=== PATIENT | male | born 1950 | race Caucasian/White ===

== ENCOUNTER 2018-04-05 01:02 | Inpatient (IN) | payer OTHER, MEDICARE ==
[~2018-04-05] VITALS: Ht 170.2 cm; Wt 60.3 kg
[2018-04-05 01:13] LABS: PCO2 Arterial 52.4 mmHg (35-45); PO2 Arterial 83.8 mmHg (80-100); pH Blood Arterial 7.21 (7.35-7.45)
[2018-04-05 01:19] LABS: BASOPHILS ABSOLUTE AUTO 0.02 K/mm3 (0.00-0.23); BASOPHILS PERCENT AUTO 0 % (0-2); EOSINOPHILS ABSOLUTE AUTO 0.01 K/mm3 (0.00-0.68); EOSINOPHILS PERCENT AUTO 0 % (0-6); Hemoglobin 18.3 g/dL (13.5-17.5); IMMATURE GRAN ABSOLUTE AUTO 0.04 K/mm3 (0.00-0.10); IMMATURE GRAN PERCENT AUTO 0 % (0-1); LYMPHOCYTES ABSOLUTE AUTO 0.56 K/mm3 (0.84-5.20); LYMPHOCYTES PERCENT AUTO 4 % (21-46); MONOCYTES ABSOLUTE AUTO 1.32 K/mm3 (0.16-1.47); MONOCYTES PERCENT AUTO 10 % (4-13); Mean Corpuscular HGB 29.3 pg (26.0-34.0); Mean Corpuscular HGB Conc 32.1 g/dL (31.5-36.5); Mean Corpuscular Volume 91 fL (80-100); Mean Platelet Volume 9.2 fL (9.1-12.4); NEUTROPHILS PERCENT AUTO 86 % (41-73); Platelet Count 350 K/mm3 (150-400); RDW Coefficient Variation 13.2 % (11.7-14.2); RDW Standard Deviation 45.1 fL (35.1-46.3); Red Blood Cell Count 6.25 M/mm3 (4.30-5.90); White Blood Cell Count 13.45 K/mm3 (4.00-11.30)
[2018-04-05 01:43] LABS: Albumin, Blood 4.2 g/dL (3.4-5.0); Albumin/Globulin Ratio 0.8 (0.8-1.8); Bilirubin, Total 0.8 mg/dL (0.1-1.0); Calcium, Blood 9.7 mg/dL (8.5-10.1); Creatinine, Blood 1.45 mg/dL (0.60-1.20); Globulin, Blood 5.3 g/dL (2.2-4.0); Potassium, Blood 4.2 mmol/L (3.5-5.5); Total Protein, Blood 9.5 g/dL (6.4-8.2)
[2018-04-05 01:48] LABS: Troponin I 2.31 ng/mL (0.000-0.040)
[2018-04-05 03:38] LABS: Prothrombin Time Results 10.6 Sec (9.7-11.5)
[2018-04-05 03:40] LABS: Influenza A Negative (NEGATIVE); Influenza B Negative (NEGATIVE)
[2018-04-05 06:46] LABS: Source, Urine Catheter
[2018-04-05 06:52] LABS: Appearance, Urine Turbid (Clear); Bilirubin, Urine Neg (Neg); Blood, Urine 3+ (Neg); Color, Urine Yellow (P-Yellow); Glucose Qualitative, Urine 1+ (Neg); Ketones, Urine 2+ (Neg); Leukocyte Esterase, Urine Neg (Neg); Nitrite, Urine Neg (Neg); Protein, Urine 4+ (Neg); Specific Gravity, Urine 1.025 (1.003-1.022); Urobilinogen, Urine 1+ (Normal)
[2018-04-05 07:11] LABS: Adenovirus Not Detected (NOT DETECT); Bordetella pertussis Not Detected (NOT DETECT); Chlamydophila pneumoniae Not Detected (NOT DETECT); Coronavirus 229E Not Detected (NOT DETECT); Coronavirus HKU1 Not Detected (NOT DETECT); Coronavirus NL63 Not Detected (NOT DETECT); Coronavirus OC43 Not Detected (NOT DETECT); Human Metapneumovirus Not Detected (NOT DETECT); Human Rhinovirus/Enterovirus Not Detected (NOT DETECT); Influenza A Not Detected (NOT DETECT); Influenza A/2009-H1 Not Detected (NOT DETECT); Influenza A/H1 Not Detected (NOT DETECT); Influenza A/H3 Not Detected (NOT DETECT); Influenza B Not Detected (NOT DETECT); Mycoplasma pneumoniae Not Detected (NOT DETECT); Parainfluenza Virus 1 Not Detected (NOT DETECT); Parainfluenza Virus 2 Not Detected (NOT DETECT); Parainfluenza Virus 3 Not Detected (NOT DETECT); Parainfluenza Virus 4 Not Detected (NOT DETECT); Respiratory Syncytial Virus Not Detected (NOT DETECT)
[2018-04-05 07:21] LABS: Amorphous Heavy (0-Heavy); Squamous Epithelial Cells Rare /hpf (Few)
--- NOTE | 2018-04-05 07:21 | NUR ---
SUMMARY PT ARRIVED TO ICU APPROX 0325. BIPAP IN PLACE, PT DROWSY AND DIFFICULT TO AROUSE. PT IS ORIENTED, BUT SLOW TO RESPOND. THROUGHOUT MORNING PT HAS BECOME INCREASINGLY EASIER TO AROUSE. PT HYPOTENSIVE, DR. LAYTON AWARE. PT RESPONSIVE TO INCREASED FLUIDS. HR CONTINUES TO BY TACHYCARDIC BUT IMPROVING FROM 120'S-110'S. PT AFEBRILE. 02 SATURATION 90'S, RR 20'S-30'S. PT HAS POOR CIRCULATION AND INITIALLY HAD DIFFICULTY OBTAINING OXYGEN SATURATION. CARDIOLOGY AND COMPUTER TESTER CONSULTS IN PLACE FOR MORNING. HEPARIN GTT INFUSING. MARTINEZ PLACED PER DR. LAYTON ORDER PT UNABLE TO URINATE, REQUIRES STRICT I/O, AND A URINE SPECIMEN IS PENDING. REPORT TO NICK DAY SHIFT RN.
[2018-04-05 07:44] LABS: Granular Casts Rare /lpf (0)
[2018-04-05 07:47] LABS: Bacteria Few /hpf
--- NOTE | 2018-04-05 08:19 | NUR ---
CARE ASSUMED CARE AND REPORT ASSUMED FROM CARLY ROD. PT SLEEPING BUT EASILY AROUSABLE. BIPAP REMOVED AT START OF ASSESSMENT AND 3L NC APPLIED. TOLERATING 3L WITH SPO2 98% AND NO SIGNS OF RESP DISTRESS. PT DOES HAVE SHALLOW BREATHING AND BARREL CHEST. VERY HARD OF HEARING; DOES HAVE HEARING AID IN R EAR. DENIES PAIN, DENIES NAUSEA AND VOMITING AT THIS TIME. HEPARIN GTT INFUSING AT 13 UNITS/HR PER ORDER. NS INFUSING AT 100 ML/HR PER ORDER. MD GREEN BEDSIDE TO EXAMINE PT. PT OK TO HAVE BREAKFAST. PT AWARE OF SPUTUM SAMPLE. WILL CONTACT [facility] TO OBTAIN MED LIST AND RECORDS. WILL CONTINUE TO MONITOR.
[2018-04-05 10:35] LABS: Hemoglobin 14.5 g/dL (13.5-17.5); Mean Corpuscular HGB 29.1 pg (26.0-34.0); Mean Corpuscular HGB Conc 32.2 g/dL (31.5-36.5); Mean Corpuscular Volume 90 fL (80-100); Mean Platelet Volume 9.2 fL (9.1-12.4); Platelet Count 219 K/mm3 (150-400); RDW Coefficient Variation 13.3 % (11.7-14.2); RDW Standard Deviation 44.1 fL (35.1-46.3); Red Blood Cell Count 4.99 M/mm3 (4.30-5.90); White Blood Cell Count 10.57 K/mm3 (4.00-11.30)
--- NOTE | 2018-04-05 10:47 | NUR ---
ECHOCARDIOGRAM COMPLETE
[2018-04-05 11:09] LABS: Troponin I 3.21 ng/mL (0.000-0.040)
--- NOTE | 2018-04-05 11:31 | NUR ---
REASSESSMENT SPO2 98% ON RA. PT STATES O2 DOES NOT HELP HIM AND FEELS NO SHORTNESS OF BREATH. DENIES CHEST PAIN. EVALUATED BY MD MEYER AT BEDSIDE. VERBAL ORDER TO GIVE PLAVIX, ASA, AND CONTINUE HEPARIN GTT. HEPARIN GTT INCREASED TO 15 U/HR PER PHARMACY. NS INFUSING AT 100 ML/HR PER ORDER. VSS. SIT, HR 100-110. BP STABLE. LUNG SOUNDS REMAIN DIMINISHED THROUGHOUT ALL CULLEN. UPDATED AT BEDSIDE. TEMP DECREASING BY REMOVING BLANKETS AND DECREASING TEMP IN ROOM. WILL CONTINUE TO MONITOR.
[2018-04-05 11:33] LABS: Creatine Kinase MB 41.2 ng/mL (0.0-3.6); Creatine Kinase MB Index 2.9 (0.0-4.0)
[2018-04-05] MEDS ORDERED: ALBU90OI INH (11:35)
[2018-04-05] MEDS ORDERED: ALBU2.5V5 (11:35)
[2018-04-05] MEDS ORDERED: BUDE6HFA INH (11:36)
[2018-04-05] MEDS ORDERED: HYDR1TAB94 PO (11:37)
[2018-04-05] MEDS ORDERED: LISI20 PO (11:38)
[2018-04-05] MEDS ORDERED: ONDA4 PO (11:39)
[2018-04-05] MEDS ORDERED: [UNRECOGNIZED DRUG - OTHER] IM (11:39)
[2018-04-05] MEDS ORDERED: Lopressor 25 mg25 MG PO (11:39)
[2018-04-05] MEDS ORDERED: NAPR500ERA PO (11:40)
[2018-04-05 12:33] LABS: Albumin, Blood 2.6 g/dL (3.4-5.0); Albumin/Globulin Ratio 0.7 (0.8-1.8); Bilirubin, Total 0.4 mg/dL (0.1-1.0); Bun/Creatinine Ratio 25.4 (12.0-20.0); Calcium, Blood 8.2 mg/dL (8.5-10.1); Creatinine, Blood 1.38 mg/dL (0.60-1.20); Globulin, Blood 3.8 g/dL (2.2-4.0); Potassium, Blood 4.3 mmol/L (3.5-5.5); Total Protein, Blood 6.4 g/dL (6.4-8.2)
--- NOTE | 2018-04-05 15:56 | NUR ---
REASSESSMENT AR REMAINS STABLE ON RA WITH SPO2 97%. NO SIGNS OF DISTRESS. PT CALM AND COOPERATIVE. [place], HR 100-120 AND BP STABLE. TEMP 99.2. HEPARIN GTT INFUSING AT 5 U/HR AND NS INFUSING AT 100 ML/HR PER ORDER. WILL CONTINUE TO MONITOR.
--- NOTE | 2018-04-05 18:10 | NUR ---
SHIFT SUMMARY PT HAS BEEN OFF BIPAP SINCE 0800 THIS AM. NO SIGNS OF RESP DISTRESS. SPO2 98% ON RA. PT HAS DIMINSHED LUNG SOUNDS THROUGHOUT. HEPARIN GTT REMAINS INFUSING; ADJUSTED PER PHARMACY. NS MIV REMAINS INFUSING AT 100 ML/HR PER ORDER. DENIED PAIN ENTIRE SHIFT.EVALUATED BY CARDIO AND PULOMONOLOGY; SEE NOTES. BP STABLE ENTIRE SHIFT. WILL GIVE BEDSIDE, HANDOFF REPORT TO ANDREA RN.
[2018-04-05 19:06] LABS: Troponin I 3.34 ng/mL (0.000-0.040)
[2018-04-05 19:24] LABS: Creatine Kinase MB 37.7 ng/mL (0.0-3.6); Creatine Kinase MB Index 2.3 (0.0-4.0)
[2018-04-06 04:05] LABS: BASOPHILS ABSOLUTE AUTO 0.02 K/mm3 (0.00-0.23); BASOPHILS PERCENT AUTO 0 % (0-2); EOSINOPHILS PERCENT AUTO 0 % (0-6); Hematocrit 38.3 % (37.0-53.0); Hemoglobin 12.8 g/dL (13.5-17.5); IMMATURE GRAN ABSOLUTE AUTO 0.05 K/mm3 (0.00-0.10); IMMATURE GRAN PERCENT AUTO 0 % (0-1); LYMPHOCYTES ABSOLUTE AUTO 0.42 K/mm3 (0.84-5.20); LYMPHOCYTES PERCENT AUTO 3 % (21-46); MONOCYTES ABSOLUTE AUTO 1.14 K/mm3 (0.16-1.47); MONOCYTES PERCENT AUTO 9 % (4-13); Mean Corpuscular HGB 29.4 pg (26.0-34.0); Mean Corpuscular HGB Conc 33.4 g/dL (31.5-36.5); Mean Corpuscular Volume 88 fL (80-100); Mean Platelet Volume 9.1 fL (9.1-12.4); NEUTROPHILS ABSOLUTE AUTO 11.13 K/mm3 (1.96-9.15); NEUTROPHILS PERCENT AUTO 87 % (41-73); Platelet Count 226 K/mm3 (150-400); RDW Coefficient Variation 13.4 % (11.7-14.2); RDW Standard Deviation 43.5 fL (35.1-46.3); Red Blood Cell Count 4.36 M/mm3 (4.30-5.90); White Blood Cell Count 12.76 K/mm3 (4.00-11.30)
[2018-04-06 04:21] LABS: BAND PERCENT MAN 6 % (0-8); BASOPHILS PERCENT MAN 0 % (0-2); EOSINOPHILS PERCENT MAN 0 % (0-6); LYMPHOCYTES ABSOLUTE MAN 0.63 K/mm3 (0.84-5.20); LYMPHOCYTES PERCENT MAN 5 % (21-46); MONOCYTES ABSOLUTE MAN 1.02 K/mm3 (0.16-1.47); MONOCYTES PERCENT MAN 8 % (4-13); SEG NEUTROPHILS PERCENT MAN 81 % (41-73); TOTAL CELLS COUNTED 100
[2018-04-06 04:27] LABS: Alanine Aminotransfer (ALT/SGP 29 U/L (12-78); Albumin, Blood 2.5 g/dL (3.4-5.0); Albumin/Globulin Ratio 0.7 (0.8-1.8); Alk Phos 53 U/L (50-136); Anion Gap 9 mmol/L (6-16); Aspartate Aminotrans (AST/SGOT 73 U/L (12-37); Bilirubin, Total 0.4 mg/dL (0.1-1.0); Blood Urea Nitrogen 30 mg/dL (8-24); Bun/Creatinine Ratio 23.8 (12.0-20.0); CO2, Blood 23 mmol/L (21-32); Calcium, Blood 8.6 mg/dL (8.5-10.1); Chloride, Blood 110 mmol/L (98-108); Creatinine, Blood 1.26 mg/dL (0.60-1.20); Globulin, Blood 3.7 g/dL (2.2-4.0); Glomerular Filtration Rate >60 (60-); Glucose, Blood 142 mg/dL (70-99); Phosphorus, Blood 2.7 mg/dL (2.5-4.9); Potassium, Blood 3.8 mmol/L (3.5-5.5); Sodium, Blood 142 mmol/L (136-145); Total Protein, Blood 6.2 g/dL (6.4-8.2)
[2018-04-06 05:04] LABS: PCO2 Arterial 31.6 mmHg (35-45); PO2 Arterial 76.5 mmHg (80-100); pH Blood Arterial 7.47 (7.35-7.45)
--- NOTE | 2018-04-06 06:50 | NUR ---
SHIFT SUMMARY A/O X3, ABLE TO MAKE NEEDS KNOWN. COOPERATIVE WITH CARE. ANSWERS QUESTIONS APPROPRIATELY. NO C/O PAIN/DISCOMFORT. REMAINS ON RA AND 98% WITH EQUAL RISE AND FALL. APPEARED TO SLEEP MUCH OF SHIFT. REMAINS ON HEPARIN DRIP; CURRENT RATE 18 U/KG/HR. NO ACUTE CHANGES NOTED OVERNIGHT. BED IN LOWEST POSITION. CALL LIGHT IN REACH. WCTM. REPOR TO ONCOMING RN.
--- NOTE | 2018-04-06 16:27 | NUR ---
Initial Visit: Palliative Care Consult for Advanced Care Planning. Pt is A&O and reports a tolerable pain level of 2/10 due to reflux. He reports significant anxiety and states he does not like to take medication for his anxiety. He uses distraction and at home his THC edibles manages his symptoms. His Sheri is present during visit. Engaged in therapeutic conversations about goals of care. Pt lives at home with his . His is his primary caregiver and does all the cooking and cleaning. Pt at baseline is independent but can not tolerate much activity. Pt reports experiencing depression on a routine bases and is managed with his THC therapy. Listened as Sheri expresses concerns about Pt's condition and experiencing caregiver stress. Discussed the option of having a caregiver in the home for a couple hours a day to give Sheri respite and she expresses interest in this idea. Discussed Pt's goals as his disease process takes it coarse. Pt reports the he and his have not considered residential goals. Encouraged Pt and his to consider residential goals and what their wishes are as this terminal illness takes it's coarse. Encouraged Pt and Sheri to have routine discussion with his PCP and Hand Rigger about the progression of his COPD to stay on top of any goals they may decide. Pt wishes to remain a full code at this time and wants to return to his base line. Discussed the high risk re-admission COPD program and Pt expresses interest. No other concerns reported at this time. Plan is to remain available for therapeutic visits. Place social service consult to help Pt and family obtain caregivers in the home. Spoke with Kushal (COPD) educsylvia and discussed Pt's interest in the high risk program.
--- NOTE | 2018-04-06 17:36 | NUR ---
END OF SHIFT SUMMARY; PT REMAINS ON BEDREST. VITAL SIGNS WNL. HEPARIN DRIP AT 19U/KG/HR AT 19ML. HE IS AO X 4. PASTORAL CARE VISITS WITH PATIENT THIS AFTERNOON. SPOUSE COMES LATER AND PT APPEARS AGITATED. ASKING ABOUT GOLD CHAIN THAT HE THINKS WAS AROUND HIS NECK ON ADMIT TO HOSPITAL. THIS RN LOOKS IN CHART AND NOTHING WAS TURNED INTO SECURITY. WILL CHECK WITH CHARGE AND MENTION TO ONCOMNING STAFF TO SEE IF ANYONE NOTICED THIS CHAIN. MARTINEZ CATH IN PLACE TO DOWN DRAIN. LUNGS ARE COARSE ON LEFT. PT HAS SMALL NONPRODUCTIVE COUGH NOTED. WILL CONTINUE TO MONITOR THIS PATIENT UNTIL REPORT AND HAND OFF TO NOC SHIFT RN.
--- NOTE | 2018-04-06 17:38 | NUR ---
This is an articulate, lakshmi man who appeared to enjoy conversation and companionship. He understands his illness is progressive and admits it is getting harder and harder to manage. Eri tells me even eating has become a problem. It is difficult for him to eat and breathe. He admits he has been surviving on a primarily liquid diet. He will benefit from pet adoption counselor/education of his options going forward. He tells me he is not fearful of , but of suffering. Eri wants to remain a full code because his needs him. I provided theraputic listening and gentle pet adoption counselor to good effect. I will remain available.
--- NOTE | 2018-04-07 01:09 | NUR ---
CHANGE: APPROX 0030 PATIENT BEGAN TO C/O DIFFICULTY BREATHING, HR INCREASING, CRACKLES AUSCULTATED IN BILATERAL LOWER LUNGS, VERY LABORED BREATHING WITH RETRACTIONS. MD EPSTEIN NOTIFIED, ORDERS RECIEVED. PATIENT CONTINUED TO WORSEN, MD CHANG IN WITH PATIENT, NS STOPPED, AMIODERONE ORDERED, EKG AQUIRED, CARDIOLOGY TO BE NOTIFIED. RT PLACED BIPAP, HR NOT IMPROVING
--- NOTE | 2018-04-07 01:52 | NUR ---
CARDIOLOGY NOTIFIED OF PATIENTS CHANGES, EKG OUTCOME AND ACTIONS TAKEN, MD STEVENS GAVE ORDERS OVER THE PHONE. AMIODERONE DRIP ORDERED AND PATIENT MADE NPO FOR POSSIBLE CATHETERIZATION IN THE AM. VS FREQUENCY INCREASED, PATIENT MONITORED VERY CLOSELY BY ALL STAFF.
[2018-04-07 03:36] LABS: BASOPHILS ABSOLUTE AUTO 0.03 K/mm3 (0.00-0.23); BASOPHILS PERCENT AUTO 0 % (0-2); EOSINOPHILS PERCENT AUTO 0 % (0-6); Hematocrit 44.7 % (37.0-53.0); Hemoglobin 14.3 g/dL (13.5-17.5); IMMATURE GRAN ABSOLUTE AUTO 0.14 K/mm3 (0.00-0.10); IMMATURE GRAN PERCENT AUTO 1 % (0-1); LYMPHOCYTES ABSOLUTE AUTO 0.47 K/mm3 (0.84-5.20); LYMPHOCYTES PERCENT AUTO 2 % (21-46); MONOCYTES ABSOLUTE AUTO 2.05 K/mm3 (0.16-1.47); MONOCYTES PERCENT AUTO 10 % (4-13); Mean Corpuscular HGB 28.8 pg (26.0-34.0); Mean Corpuscular Volume 90 fL (80-100); Mean Platelet Volume 9.6 fL (9.1-12.4); NEUTROPHILS ABSOLUTE AUTO 17.43 K/mm3 (1.96-9.15); NEUTROPHILS PERCENT AUTO 87 % (41-73); NRBC ABSOLUTE 0.04 K/mm3 (0.00-0.02); NRBC Auto 0.2 /100 WBC (0.0-0.2); Platelet Count 341 K/mm3 (150-400); RDW Coefficient Variation 13.6 % (11.7-14.2); RDW Standard Deviation 44.5 fL (35.1-46.3); Red Blood Cell Count 4.97 M/mm3 (4.30-5.90); White Blood Cell Count 20.12 K/mm3 (4.00-11.30)
[2018-04-07 03:51] LABS: Albumin, Blood 2.9 g/dL (3.4-5.0); Anion Gap 8 mmol/L (6-16); Blood Urea Nitrogen 37 mg/dL (8-24); Bun/Creatinine Ratio 26.6 (12.0-20.0); CO2, Blood 24 mmol/L (21-32); Calcium, Blood 8.4 mg/dL (8.5-10.1); Chloride, Blood 109 mmol/L (98-108); Creatinine, Blood 1.39 mg/dL (0.60-1.20); Glomerular Filtration Rate 54 (60-); Glucose, Blood 279 mg/dL (70-99); Magnesium, Blood 2.4 mg/dL (1.6-2.4); Potassium, Blood 4.6 mmol/L (3.5-5.5); Sodium, Blood 141 mmol/L (136-145)
[2018-04-07 04:02] LABS: Phosphorus, Blood 6.1 mg/dL (2.5-4.9)
--- NOTE | 2018-04-07 04:17 | NUR ---
SHIFT SUMMARY: PATIENT HR IMPROVING ON AMIODERONE DRIP, PATIENT STILL ALOC AND LETHARGIC BUT RR IMPROVING AND O2 MAINTAINING AT 90% AND ABOVE. MD ZAMORA AND MD STEVENS AWARE OF SITUATION, CARE BEING PROVIDED. ALL PROTOCOLS AND ORDERS IMPLEMENTED AND MONITORED CLOSELY. BED LWO AND LOCKED WITH EXIT ALARM ON, CALL LIGHT WITHIN REACH, ROUNDING INCREASED, MONITORING CLOSELY.
--- NOTE | 2018-04-07 07:41 | NUR ---
RECEIVED REPORT AND ASSUMED CARE OF PATIENT.
--- NOTE | 2018-04-07 08:32 | NUR ---
DR. RODNEY STEVENS ROUNDED ON PT. DISCUSSED PT'S OVERNIGHT EVENTS - HE STATES PT WAS IN RAPID ATRIAL FLUTTER BASED ON EKG OBTAINED OVERNIGHT. ORDERS RECEIVED FOR NEW LABS. DR. STEVENS STATES PT NEEDS ANGIOGRAM BUT NEEDS TO TOLERATE LYING FLAT. WILL RE-ASSESS PT THIS AFTERNOON AND IF HE ABLE AT THAT TIME, HE MAY GO FOR ANGIOGRAM. DR. STEVENS AND PT DISCUSSED PROCEDURE AND CONSENT WAS OBTAINED AT THIS TIME.
[2018-04-07 08:48] LABS: Albumin, Blood 2.9 g/dL (3.4-5.0); Albumin/Globulin Ratio 0.7 (0.8-1.8); Bilirubin, Direct 0.1 mg/dL (0.0-0.3); Bilirubin, Indirect 0.3 mg/dL (0.1-0.7); Bilirubin, Total 0.4 mg/dL (0.1-1.0); Globulin, Blood 4.3 g/dL (2.2-4.0); Total Protein, Blood 7.2 g/dL (6.4-8.2)
[2018-04-07 08:51] LABS: Thyroid Stimulating Hormone 1.63 uIU/mL (0.360-4.800)
--- NOTE | 2018-04-07 12:30 | NUR ---
PT TO BUSINESS CENTER REPRESENTATIVE FOR PROCEDURE WITH DR. STEVENS AND DR. HEWITT.
--- NOTE | 2018-04-07 15:30 | NUR ---
PT RETURNED FROM [facility]. HE IS A BIT LETHARGIC, BUT WOULD LIKE TO HAVE SOME WATER AND GET OFF OF THE BIPAP. CHANGED TO NC AT 3 LPM. O2 SAT 95%. PT HAS SIGNIFICANT BRUISING AT RIGHT RADIAL SITE. TR BAND IN PLACE, THERE IS A SMALL ACCESS POINT BELOW THE TR BAND THAT IS OOZING. SMALL HEMATOMA NOTED <3CM, WITH PRESSURE IT SEEMED TO DISIPATE. HEART CENTER RN SLID THE TR BAND DOWN SLIGHTLY AND WILL CONTINUE TO MONITOR SITE. IV'S ON THE LEFT ARM ARE INFILTRATED BOTH THE UPPER ARM AND AC. SITES USED DURING THE PROCEDURE, HOWEVER BOTH APPEAR INFILTRATED. NEW IV STARTED IN LEFT UPPER ARM BY MARCEL PAULA.
--- NOTE | 2018-04-07 15:44 | NUR ---
INTRAPROCEDURE CARDIAC CATHETERIZATION/PCI PT FOUND WITH BP CUFF ON R ARM. SAME CUFF MOVED TO L ARM, DUE TO USE OF R RADIAL ARTERY FOR PROCEDURE ACCESS. INITIAL BP MEASURED. ALL FOLLOWING BP'S WOULD NOT RECORD. BP CUFF RESET ON L ARM; MOVED TO L CALF WITH RESETTING AND NEW CUFF PLACED TO L RADIAL WITH RESETTINGS. ALL WITH NEGATIVE RESULTS. ALL BP MONITORING PERFORMED BY INVASIVE CATHETER PRESSURES. L UPPER ARM 20 GA IV UTILIZED FOR IV FLUIDS. SEDATION DRUGS PROVIDED HAD RESPONSIVE EFFECT FOR ENTIRE DIAGNOSTIC PROCEDURE. AT TIME OF PCI, HEPARIN DOSE WAS INEFFECTIVE, BASED ON EQUIVICAL ACT RESULTS BEFORE AND AFTER DOSE. IVF LINE MOVED TO L AC 18 GA SIDEPORT. REPEAT HEPARIN DOSE PROVIDED WITH RESPONSIVE EFFECT BASED ON ACT RESULT THAT FOLLOWED.
--- NOTE | 2018-04-07 18:09 | NUR ---
PT HAS TOLERATED BEING OFF OF BIPAP, CURRENTLY ON .5 LPM VIA NC WITH O2 SAT 95-98%. PT IS VISITING WITH AND HAS PLEASANT AFFECT. HE IS JOKING AROUND WITH STAFF AND IN GOOD SPIRITS. HR HAS BEEN NSR SINCE HE RETURNED WITH HR IN 80-90'S. TR BAND SITE HAS BEEN STABLE, NO HEMATOMA FELT, THERE IS SIGNIFICANT BRUISING AT THE SITE, BELOW AND ABOVE THE TR BAND. WILL CONTINUE TO MONITOR AND GIVE REPORT TO ANDREA ROD.
--- NOTE | 2018-04-07 18:30 | NUR ---
REMOVED 1 CC OF AIR AT 1830. WILL CONTINUE TO ASSESS.
--- NOTE | 2018-04-07 19:15 | NUR ---
[place] of Care: Patient alert and oriented, sitting upright in bed watching tv. Denies pain, discomfort, SOB, or dyspnea, O2-98% on 1L/NC, VSS. TR band to rt radial, no s/s of active bleeding or hematoma noted. Rt hand color, temp, sensation, capillary refill wnl. Aprox 11ml of air in TR band ant this time, will continue to monitor and decrease air as indicated. Amiodarone gtt infusing at 0.5mg/hr will d/c when 24hr infusing time is reached, approx 0000hr this shift. Peripheral IV's x2 patent and intact. Call light in reach, makes needs known. Will continue to monitor for pain, comfort, safety.
[2018-04-08 03:47] LABS: BASOPHILS ABSOLUTE AUTO 0.01 K/mm3 (0.00-0.23); BASOPHILS PERCENT AUTO 0 % (0-2); EOSINOPHILS PERCENT AUTO 0 % (0-6); Hematocrit 38.3 % (37.0-53.0); Hemoglobin 12.6 g/dL (13.5-17.5); IMMATURE GRAN ABSOLUTE AUTO 0.08 K/mm3 (0.00-0.10); IMMATURE GRAN PERCENT AUTO 1 % (0-1); LYMPHOCYTES ABSOLUTE AUTO 0.35 K/mm3 (0.84-5.20); LYMPHOCYTES PERCENT AUTO 3 % (21-46); MONOCYTES ABSOLUTE AUTO 0.67 K/mm3 (0.16-1.47); MONOCYTES PERCENT AUTO 6 % (4-13); Mean Corpuscular HGB 29.1 pg (26.0-34.0); Mean Corpuscular HGB Conc 32.9 g/dL (31.5-36.5); Mean Corpuscular Volume 89 fL (80-100); Mean Platelet Volume 9.8 fL (9.1-12.4); NEUTROPHILS ABSOLUTE AUTO 9.52 K/mm3 (1.96-9.15); NEUTROPHILS PERCENT AUTO 90 % (41-73); Platelet Count 212 K/mm3 (150-400); RDW Coefficient Variation 13.4 % (11.7-14.2); RDW Standard Deviation 44.1 fL (35.1-46.3); Red Blood Cell Count 4.33 M/mm3 (4.30-5.90); White Blood Cell Count 10.63 K/mm3 (4.00-11.30)
[2018-04-08 04:05] LABS: Anion Gap 7 mmol/L (6-16); Blood Urea Nitrogen 41 mg/dL (8-24); Bun/Creatinine Ratio 38.7 (12.0-20.0); CO2, Blood 23 mmol/L (21-32); Calcium, Blood 8.1 mg/dL (8.5-10.1); Chloride, Blood 111 mmol/L (98-108); Creatinine, Blood 1.06 mg/dL (0.60-1.20); Glomerular Filtration Rate >60 (60-); Glucose, Blood 135 mg/dL (70-99); Magnesium, Blood 2.4 mg/dL (1.6-2.4); Potassium, Blood 4.2 mmol/L (3.5-5.5); Sodium, Blood 141 mmol/L (136-145)
[2018-04-08 04:39] LABS: Phosphorus, Blood 2.8 mg/dL (2.5-4.9)
[2018-04-08 04:52] LABS: PCO2 Arterial 32.8 mmHg (35-45); PO2 Arterial 110 mmHg (80-100); pH Blood Arterial 7.45 (7.35-7.45)
--- NOTE | 2018-04-08 06:16 | NUR ---
Shift Summary: Patient slept well throughout shift. C/o anxiety and SOB early in shift. Contacted Ja Pushpinger and received one-time dose of 1mg Ativan IV, also placed patient on BiPAP mask at that time. Prn Ativan effective, remained calm throughout remainder of shift. Wore BiPAP mask for majority of shift, tolerated well, RT decreased setting to 12/6, 25% FiO2, O2-96-98%. Air in TR band slowly decreased throughout shift, removed at approx 0530hr, cleansed with chlorhexidine and clear occlusive dressing applied. No s/s of bleeding or hematoma noted. Rt hand/extremity temp, color, sensation, and capillary refill remain wnl. Stratton cath remains patent and intact, draining clear yellow urine. Will continue to monitor until report to day shift RN.
--- NOTE | 2018-04-08 07:33 | NUR ---
START OF SHIFT NOTE: RECEIVED REPORT FROM MARCEL TRAN, ASSUMED CARE, PATIENT IS SITTING UP IN BED, AWAKE, ALERT AND ORIENTED, RECEIVING BREATHING TREATMENT AT THIS TIME, LS TIGHT AND DECREASED AIR MOVEMENT NOTED, NSR WITH RATE IN 90s, MARTINEZ CATHETER IN PLACE, BTs PRESENT IN ALL FOUR QUADRANTS, PATIENT DENIES SHORTNESS OF BREATH AT THIS TIME, REPORTS NO CHEST PAIN/DISCOMFORT, CALL LIGHT IN REACH, WILL CONTINUE TO MONITOR.
--- NOTE | 2018-04-08 10:59 | NUR ---
DR. LEIGH IN TO SEE PATIENT, O2 WAS TAKEN OFF, PATIENT ABLE TO KEEP O2 SATS IN MID 90s, PATIENT IS RESTING COMFORTABLY AT THIS TIME, UNABLE TO EAT BREAKFAST, PATIENT STATED "I HAVE TO HOLD MY BREATH WHEN I EAT, BUT I ALSO NEED TO BREATH", PATIENT HAS COPD EXACERBATION, ABLE TO TAKE IN LIQUIDS BETTER, CALL LIGHT IN REACH, WILL CONTINUE TO MONITOR.
--- NOTE | 2018-04-08 14:38 | NUR ---
PATIENT HAD EPISODE OF ANXIETY, AND BECAME SHORT OF BREATH, HR INCREASED TO 100s AND SBPs AT 180s, RT NOTIFIED, PATIENT PLACED BACK ON BIPAP, CALL LIGHT IN REACH, WILL CONTINUE TO MONITOR.
--- NOTE | 2018-04-08 15:00 | NUR ---
DR. LEIGH NOTIFIED ABOUT PATIENT CHANGE IN BREATHING AND VITAL SIGN PATTERN, RECEIVED A ONE TIME ORDER FOR ATIVAN 1 MG IV NOW.
--- NOTE | 2018-04-08 15:21 | NUR ---
PATIENT RECEIVED 1 MG ATIVAN IV AND APPEARS MORE RELAXED, USE OF ACCESSORY MUSCLES WHILE BREATHING HAS DECREASED VISIBLY, AT BEDSIDE, CALL LIGHT IN REACH, WILL CONTINUE TO MONITOR.
--- NOTE | 2018-04-08 17:55 | NUR ---
SHIFT SUMMARY NOTE: PATIENT AWAKE, ALERT AND ORIENTED, ON 2L NC MOST OF THE DAY, EXPERIENCED EPISODE OF ANXIETY THIS AFTERNOON WITH INCREASE IN BLOOD PRESSURE, HEART RATE AND USE OF ACCESSORY MUSCLES TO BREATH, PLACED BACK ON BIPAP, ALSO RECEIVED A ONE TIME DOSE OF ATIVAN [address] LEIGH, PATIENT RELAXED, VS DECREASED TO WNL, PATIENT IS NOT ABLE TO EAT MUCH OF ANY MEAL, MOSTLY DRINKS HIS SUPPLEMENTS, NSR, LUNG SOUNDS ARE TIGHT AND COARSE, MARTINEZ CATHETER IS DRAINING ADEQUATE AMOUNT OF DARK YELLOW URINE, CONTINUES ON ANTIBIOTICS, RIGHT RADIAL SITE SHOWS NO S/S OF BLEEDING, BRUISING AROUND AREA, AT BEDSIDE THIS AFTERNOON, PATIENT DENIES GENERALIZED PAIN AND ALSO DENIES CHEST PAIN/DISCOMFORT, APPRECIATIVE AND COOPERATIVE, FOR DETAILS SEE SHIFT ASSESSMENT AND NURSES NOTES, CALL LIGHT IN REACH, WILL CONTINUE TO MONITOR AND GIVE REPORT TO ONCOMING DELPHI DEVELOPER.
--- NOTE | 2018-04-08 19:15 | NUR ---
[place]on of Care: Patient alert and oriented, sitting upright in bed, watching tv. Denies dyspnea or SOB (at start of shift), O2-98% on RA. Patient then c/o mild SOB and anxiety after turning in bed to change linens. Patient placed on BiPAP at that time, and anxiety/SOB quickly resolved. BiPAP at 12/5, 25% FiO2. Stratton cath patent and intact, draining light yellow clear urine. Peripheral IV's patent and intact, dressing changed to IV in rt AC at start of shift. Call light in reach, makes needs known. Will continue to monitor for pain, safety, comfort.
--- NOTE | 2018-04-08 21:56 | NUR ---
CARE ASSUMED REPORT RECEIVED, CARE ASSUMED FROM MARCEL TRAN. PT SITTING UP IN BED WATCHING TELEVISION ON ROOM AIR. VITALS STABLE. SEE ASSESSMENTS/FLOWSHEETS. DENIES NEEDS.
--- NOTE | 2018-04-08 22:27 | NUR ---
Report to Miri ROD: Report given to Miri ROD at this time, assuming care of patient for remiander of shift.
[2018-04-09 03:50] LABS: BASOPHILS ABSOLUTE AUTO 0.01 K/mm3 (0.00-0.23); BASOPHILS PERCENT AUTO 0 % (0-2); EOSINOPHILS PERCENT AUTO 0 % (0-6); Hematocrit 37.8 % (37.0-53.0); Hemoglobin 12.8 g/dL (13.5-17.5); IMMATURE GRAN ABSOLUTE AUTO 0.11 K/mm3 (0.00-0.10); IMMATURE GRAN PERCENT AUTO 1 % (0-1); LYMPHOCYTES ABSOLUTE AUTO 0.28 K/mm3 (0.84-5.20); LYMPHOCYTES PERCENT AUTO 3 % (21-46); MONOCYTES ABSOLUTE AUTO 1.01 K/mm3 (0.16-1.47); MONOCYTES PERCENT AUTO 9 % (4-13); Mean Corpuscular HGB 29.2 pg (26.0-34.0); Mean Corpuscular HGB Conc 33.9 g/dL (31.5-36.5); Mean Platelet Volume 9.5 fL (9.1-12.4); NEUTROPHILS ABSOLUTE AUTO 9.36 K/mm3 (1.96-9.15); NEUTROPHILS PERCENT AUTO 87 % (41-73); Platelet Count 217 K/mm3 (150-400); RDW Coefficient Variation 13.4 % (11.7-14.2); RDW Standard Deviation 42.1 fL (35.1-46.3); Red Blood Cell Count 4.39 M/mm3 (4.30-5.90); White Blood Cell Count 10.77 K/mm3 (4.00-11.30)
[2018-04-09 04:10] LABS: Mean Corpuscular Volume 86 fL (80-100)
[2018-04-09 04:27] LABS: Anion Gap 7 mmol/L (6-16); Blood Urea Nitrogen 41 mg/dL (8-24); Bun/Creatinine Ratio 39.8 (12.0-20.0); CO2, Blood 25 mmol/L (21-32); Calcium, Blood 8.2 mg/dL (8.5-10.1); Chloride, Blood 111 mmol/L (98-108); Creatinine, Blood 1.03 mg/dL (0.60-1.20); Glomerular Filtration Rate >60 (60-); Glucose, Blood 134 mg/dL (70-99); Potassium, Blood 4.1 mmol/L (3.5-5.5); Sodium, Blood 143 mmol/L (136-145)
--- NOTE | 2018-04-09 06:09 | NUR ---
SUMMARY VITALS STABLE THROUGHOUT NIGHT. PT DID HAVE ONE EPISODE OF TACHYPNEA LAST NIGHT, ENCOURAGED PT TO USE BIPAP. PT SKEPTICLE HE EXPLAINS BEING MOTIVATED TO HEAL HIS BODY ON HIS OWN. PROVIDED PT WITH THOROUGH EDUCATION ON CURRENT ILLNESS AND REASON FOR TITRATION OF INTERVENTION AND PT AGREEABLE. PT WORE FOR APPROXIMATELY 2 HOURS. OTHERWISE, PT HAS BEEN ON ROOM AIR, 02 SAT IN 90'S AND RR LOW 20'S. PT HAS BEEN PLEASANT, TALKATIVE AND DENIED ANXIETY THROUGHOUT THE NIGHT. SEE ASSESSMENTS/FLOWSHEETS.
--- NOTE | 2018-04-09 08:10 | NUR ---
ASSUMED CARE: REPORT RECEIVED FROM CARLY Rogers RN. ASSUMED CARE OF THIS PT AT APPROX 0700. ON ASSESSMENT, THE PT IS RESTING QUIETLY. HE DENIES PAIN OR SOB AT THAT TIME. HE STS HIS APPETITE REMAINS DECREASED, BUT IS ABLE TO EAT A SMALL AMNT OF BREAKFAST THIS AM. WILL CONTINUE TO MONITOR & UPDATE NEEDED.
--- NOTE | 2018-04-09 10:36 | NUR ---
DR. MOORE: PROVIDER AT BEDSIDE TO ASSESS PT. SHE STS SHE WILL BE MAKING SOME CHANGES TO MEDS & THEN WILL BE SIGNING OFF OF THIS CASE PT's RESP STATUS HAS IMPROVED. WILL CONTINUE TO MONITOR & UPDATE NEEDED.
--- NOTE | 2018-04-09 17:56 | NUR ---
SHIFT SUMMARY: PT REMAINS A&O, PLEASANT & COOPERATIVE W/ CARE. [place]. HE HAS HAD NO C/O CP THIS SHIFT. R WRIST IMMOBILIZER REMOVED AFTER 48 HRS & TEGADERM REMAINS CDI. PT ON RA W/ O2 SATS > 92%. NO TACHYPNEA NOTED TODAY, PT DID NOT NEED BIPAP THERAPY. MONITOR SHOWS SR-ST, HR 90-100s. PT STS APPETITE IMPROVING, BUT NOT AT BASELINE. MARTINEZ HAS BEEN REMOVED THIS EVENING AT APPROX 1600, NO VOID SINCE. PT HAS EXPRESSED THAT HE IS WILLING TO GO TO SNF FOR EXTENDED RECOVERY TIME/ REHABILITATION IF NEEDED. HE HAS HAD NO C/O PAIN OR DISCOMFORT THIS SHIFT. WILL CONTINUE TO MONITOR & REPORT OFF TO ONCOMING RN.
--- NOTE | 2018-04-09 20:48 | NUR ---
CALLED RN FOR ROOM 226 TO CALL BACK WHEN ABLE FOR PT TRANSFER.
[2018-04-10 05:36] LABS: BASOPHILS ABSOLUTE AUTO 0.05 K/mm3 (0.00-0.23); BASOPHILS PERCENT AUTO 0 % (0-2); EOSINOPHILS ABSOLUTE AUTO 0.02 K/mm3 (0.00-0.68); EOSINOPHILS PERCENT AUTO 0 % (0-6); Hematocrit 41.3 % (37.0-53.0); Hemoglobin 13.6 g/dL (13.5-17.5); IMMATURE GRAN ABSOLUTE AUTO 0.24 K/mm3 (0.00-0.10); IMMATURE GRAN PERCENT AUTO 2 % (0-1); LYMPHOCYTES PERCENT AUTO 7 % (21-46); MONOCYTES ABSOLUTE AUTO 2.07 K/mm3 (0.16-1.47); MONOCYTES PERCENT AUTO 16 % (4-13); Mean Corpuscular HGB 29.3 pg (26.0-34.0); Mean Corpuscular HGB Conc 32.9 g/dL (31.5-36.5); Mean Platelet Volume 9.5 fL (9.1-12.4); NEUTROPHILS ABSOLUTE AUTO 9.34 K/mm3 (1.96-9.15); NEUTROPHILS PERCENT AUTO 74 % (41-73); Platelet Count 220 K/mm3 (150-400); RDW Coefficient Variation 13.5 % (11.7-14.2); RDW Standard Deviation 44.1 fL (35.1-46.3); Red Blood Cell Count 4.64 M/mm3 (4.30-5.90); White Blood Cell Count 12.62 K/mm3 (4.00-11.30)
[2018-04-10 05:37] LABS: Mean Corpuscular Volume 89 fL (80-100)
[2018-04-10 05:57] LABS: Albumin, Blood 2.3 g/dL (3.4-5.0); Anion Gap 7 mmol/L (6-16); Blood Urea Nitrogen 34 mg/dL (8-24); Bun/Creatinine Ratio 35.2 (12.0-20.0); CO2, Blood 26 mmol/L (21-32); Calcium, Blood 7.9 mg/dL (8.5-10.1); Chloride, Blood 110 mmol/L (98-108); Creatinine, Blood 0.97 mg/dL (0.60-1.20); Glomerular Filtration Rate >60 (60-); Glucose, Blood 99 mg/dL (70-99); Phosphorus, Blood 2.3 mg/dL (2.5-4.9); Potassium, Blood 4.1 mmol/L (3.5-5.5); Sodium, Blood 143 mmol/L (136-145)
--- NOTE | 2018-04-10 17:28 | NUR ---
PT IS AOX4 AND COOPERATIVE OF CARE. PT STILL IS SOB WITH EXCERTION. PT SEEMS TO MANAGE THIS WELL. PT SEEMS TO HAVE SOME UNDERLYING ANXIETY AND APPEARS ANXIOUS WHEN NEED FOR IV OR MEDICATION IS EXPLAINED. PT IS REASSURED AND THIS SEEMS TO CALM HIM. PT DID REQUEST BREATHING TREATMENT X 1 TODAY. WILL CONTINUE TO MONITOR.
[2018-04-11 04:44] LABS: BASOPHILS ABSOLUTE AUTO 0.05 K/mm3 (0.00-0.23); BASOPHILS PERCENT AUTO 0 % (0-2); EOSINOPHILS ABSOLUTE AUTO 0.16 K/mm3 (0.00-0.68); EOSINOPHILS PERCENT AUTO 1 % (0-6); Hematocrit 42.3 % (37.0-53.0); IMMATURE GRAN ABSOLUTE AUTO 0.43 K/mm3 (0.00-0.10); IMMATURE GRAN PERCENT AUTO 3 % (0-1); LYMPHOCYTES ABSOLUTE AUTO 0.95 K/mm3 (0.84-5.20); LYMPHOCYTES PERCENT AUTO 7 % (21-46); MONOCYTES ABSOLUTE AUTO 1.82 K/mm3 (0.16-1.47); MONOCYTES PERCENT AUTO 13 % (4-13); Mean Corpuscular HGB 29.2 pg (26.0-34.0); Mean Corpuscular HGB Conc 33.1 g/dL (31.5-36.5); Mean Corpuscular Volume 88 fL (80-100); Mean Platelet Volume 9.4 fL (9.1-12.4); NEUTROPHILS PERCENT AUTO 76 % (41-73); Platelet Count 239 K/mm3 (150-400); RDW Coefficient Variation 13.8 % (11.7-14.2); RDW Standard Deviation 44.5 fL (35.1-46.3); Red Blood Cell Count 4.79 M/mm3 (4.30-5.90); White Blood Cell Count 14.21 K/mm3 (4.00-11.30)
[2018-04-11 05:01] LABS: Albumin, Blood 2.4 g/dL (3.4-5.0); Anion Gap 4 mmol/L (6-16); Blood Urea Nitrogen 35 mg/dL (8-24); Bun/Creatinine Ratio 32.7 (12.0-20.0); CHOL/HDL RATIO 2.4; CO2, Blood 29 mmol/L (21-32); Calcium, Blood 7.6 mg/dL (8.5-10.1); Chloride, Blood 111 mmol/L (98-108); Cholesterol 148 mg/dL (50-200); Creatinine, Blood 1.07 mg/dL (0.60-1.20); Glomerular Filtration Rate >60 (60-); Glucose, Blood 86 mg/dL (70-99); HDL Cholesterol 62 mg/dL (>39); Low Density Lipoprotein Chol 62 mg/dL (0-110); Phosphorus, Blood 2.8 mg/dL (2.5-4.9); Potassium, Blood 4.2 mmol/L (3.5-5.5); Sodium, Blood 144 mmol/L (136-145); Triglycerides 120 mg/dL (30-160); Very Low Density Lipoprot Chol 24 mg/dL (6-32)
--- NOTE | 2018-04-11 05:38 | NUR ---
DID FAIRLY WELL DURING NIGHT. DID CALL ONCE C/O DYSPNEA WITH ANXIETY. THIS WAS RESOLVED WITH PRN NEB TREATMENT. PT STILL HAS MINIMAL ACTIVITY DUE TO SOB BUT REMAINS ON RA. HR REMAINS CONTROLLED. CONT TELE MONITORING, IV ABX, AND NEB TREATMENTS. CALL LIGHT IN REACH.
--- NOTE | 2018-04-11 08:07 | NUR ---
pt to imaging
--- NOTE | 2018-04-11 17:03 | NUR ---
SUMMARY NO ACUTE CHANGES THIS SHIFT. PT WEAK. UP TO BSC W/BRUSHER TENDER TWICE AND WORKED W/THERAPY DURING SHIFT. PLEASANT AND COOPERATIVE. CALL LIGHT IN REACH.
--- NOTE | 2018-04-12 05:34 | NUR ---
DID WELL DURING NIGHT. STATES FEELING MUCH BETTER AND SLEPT MOST OF SHIFT. DENIES ANY SIG SOB OR ANY OTHER C/O. CONT STEROID TAPER AND PRN NEB TX. CALL LIGHT IN REACH.
--- NOTE | 2018-04-13 05:00 | NUR ---
SHIFT SUMMARY: NO ACUTE CHANGES OVER NIGHT. A&O X4. VS WNL. RECEIVING BREATHING TX PRN FOR SOB. SINUS RYTHM AT 70 PER DISPATCH MACHINE RUNNER. DENIES CP. PLAN FOR REHAB WHEN BED IS OPEN. CALL LIGHT IN REACH. NO CONCERNS AT THIS TIME.
[2018-04-13 05:48] LABS: Chloride, Blood 108 mmol/L (98-108); Potassium, Blood 4.1 mmol/L (3.5-5.5); Sodium, Blood 144 mmol/L (136-145)
[2018-04-13 05:55] LABS: Albumin, Blood 2.4 g/dL (3.4-5.0); Anion Gap 5 mmol/L (6-16); Blood Urea Nitrogen 31 mg/dL (8-24); Bun/Creatinine Ratio 33.4 (12.0-20.0); CO2, Blood 31 mmol/L (21-32); Calcium, Blood 7.9 mg/dL (8.5-10.1); Creatinine, Blood 0.93 mg/dL (0.60-1.20); Glomerular Filtration Rate >60 (60-); Glucose, Blood 80 mg/dL (70-99)
--- NOTE | 2018-04-14 06:38 | NUR ---
SUMMARY: NO ACUTE CHANGE TONIGHT, VSS. PT ABLE TO SLEEP. NO SAFETY CONCERNS. WILL PASS REPORT TO DAY RN.
--- NOTE | 2018-04-14 18:29 | NUR ---
summary patient cheerful, smiling throughout shift and telling me that he has had a good day. patient reports slightly sob after eating too much at dinner and stomach pushing on his lungs. patient denies pain or nausea. wathing tv at this time and denies any needs
--- NOTE | 2018-04-15 06:32 | NUR ---
SUMMARY PT REMAINS ON ROOM AIR. NO ACUTE CHANGES NOTED THROUGH THE NIGHT. PT HAS SLEPT WITH NO PROBLEMS, WCTM. CALL LIGHT IN REACH
--- NOTE | 2018-04-15 11:59 | NUR ---
patient will transfer to today. patient tells me he is nervous about riding to snf in a wheelchair and declines lunch at this time. reinforced with patient that he is doing well sitting in chair and getting oob. will await snf transfer
--- NOTE | 2018-04-15 14:56 | NUR ---
REPORT PHONED TO ADI AT [facility]. TRANSPORT HER WITH WHEELCHAIR TO TAKE PATIENT TO [facility]. PATIENT ANXIOUS ABOUT BEING TRANSPORTED- REASSURED PATIENT REGARDING TRANSFER
== END 2018-04-15 14:49 | DRG 853 ==
LOC: ER 01:02 → ICUW 02:26 → SURS 04-09 21:23
PROVIDERS: Emergency Medicine; Internal Medicine; Internal Medicine Cardiovascular Disease; Internal Medicine Critical Care Medicine; Nurse Practitioner Acute Care; ADMIT Internal Medicine
PROC: 5A09357 Assistance with Respiratory Ventilation, Less than 24 Consecutive Hours, Continuous Positive Airway Pressure (ICD-10-PCS; principal; 2018-04-05)
PROC: B2111ZZ Fluoroscopy of Multiple Coronary Arteries using Low Osmolar Contrast (ICD-10-PCS; 2018-04-07)
PROC: 027034Z Dilation of Coronary Artery, One Artery with Drug-eluting Intraluminal Device, Percutaneous Approach (ICD-10-PCS; 2018-04-07)
DX: A41.9 Sepsis, unspecified organism (principal); J18.9 Pneumonia, unspecified organism; I21.4 Non-ST elevation (NSTEMI) myocardial infarction; J96.01 Acute respiratory failure with hypoxia; R65.21 Severe sepsis with septic shock; E43 Unspecified severe protein-calorie malnutrition; I50.21 Acute systolic (congestive) heart failure; I48.92 Unspecified atrial flutter; N17.9 Acute kidney failure, unspecified; R64 Cachexia; Z68.1 Body mass index [BMI] 19.9 or less, adult; I95.9 Hypotension, unspecified; R65.20 Severe sepsis without septic shock; B18.2 Chronic viral hepatitis C; F43.10 Post-traumatic stress disorder, unspecified; M85.80 Other specified disorders of bone density and structure, unspecified site; H91.90 Unspecified hearing loss, unspecified ear; Z87.891 Personal history of nicotine dependence; J43.9 Emphysema, unspecified; I11.0 Hypertensive heart disease with heart failure; E11.65 Type 2 diabetes mellitus with hyperglycemia; I48.0 Paroxysmal atrial fibrillation; I25.5 Ischemic cardiomyopathy; Z79.82 Long term (current) use of aspirin; Z79.02 Long term (current) use of antithrombotics/antiplatelets
CPT/HCPCS: 36415; 36600; 51702; 71045; 71046; 80048; 80053; 80061; 80069; 80076; 80202; 81001; 82550; 82553; 82803; 82947; 83036; 83605; 83735; 83880; 84100; 84443; 84484; 85025; 85027; 85347; 85610; 85730; 87040; 87086; 87486; 87581; 87633; 87798; 87804; 90686; 93005; 93010; 93306; 93454; 94640; 94644; 94660; 94760; 96365; 96375; 97110; 97162; 97165; 97530; 99152; 99153; 99285-25; C1725; C1769; C1874; C1887; C1894; C9600; G0008; J0282; J0360; J0456; J0696; J1644; J1815; J1940; J1956; J2060; J2250; J2920; J2930; J3010; J3370; J7030; J7040; J7050; J7060; J7120; Q9967

== ENCOUNTER 2018-11-01 12:18 | Emergency (ER) | payer OTHER, MEDICARE ==
[~2018-11-01] VITALS: Ht 172.7 cm; Wt 68.0 kg
[~2018-11-01 12:18] MED LIST: ALBU2.5V5; ALBU90OI INH; BUDE6HFA INH; HYDR1TAB94 PO; LISI20 PO; Lopressor 25 mg25 MG PO; NAPR500ERA PO; ONDA4 PO; [UNRECOGNIZED DRUG - OTHER] IM
[2018-11-01] MEDS ORDERED: BUDE6HFA INH (12:59)
[2018-11-01] MEDS ORDERED: Amiodarone HCl200 MG PO (12:59)
[2018-11-01] MEDS ORDERED: ASPI81CH PO (12:59)
[2018-11-01] MEDS ORDERED: VITAMIN D31000 UNIT PO (12:59)
[2018-11-01] MEDS ORDERED: ATOR10 PO (12:59)
[2018-11-01] MEDS ORDERED: FERSU300 PO (13:00)
[2018-11-01] MEDS ORDERED: Vitamin B-121000 MCG PO (13:00)
[2018-11-01] MEDS ORDERED: LEVSOD50 PO (13:00)
[2018-11-01] MEDS ORDERED: CLOP75 PO (13:00)
[2018-11-01] MEDS ORDERED: METO25ER PO (13:01)
[2018-11-01] MEDS ORDERED: LISI5 PO (13:01)
[2018-11-01] MEDS ORDERED: NITR.4SL SL (13:02)
[2018-11-01] MEDS ORDERED: Hair, Skin & N1 EACH PO (13:02)
[2018-11-01] MEDS ORDERED: PANT20 PO (13:02)
[2018-11-01 13:03] LABS: BASOPHILS ABSOLUTE AUTO 0.03 K/mm3 (0.00-0.23); BASOPHILS PERCENT AUTO 1 % (0-2); EOSINOPHILS ABSOLUTE AUTO 0.17 K/mm3 (0.00-0.68); EOSINOPHILS PERCENT AUTO 3 % (0-6); Hematocrit 43.2 % (37.0-53.0); IMMATURE GRAN ABSOLUTE AUTO 0.01 K/mm3 (0.00-0.10); IMMATURE GRAN PERCENT AUTO 0 % (0-1); LYMPHOCYTES ABSOLUTE AUTO 0.79 K/mm3 (0.84-5.20); LYMPHOCYTES PERCENT AUTO 13 % (21-46); MONOCYTES ABSOLUTE AUTO 0.67 K/mm3 (0.16-1.47); MONOCYTES PERCENT AUTO 11 % (4-13); Mean Corpuscular HGB 29.6 pg (26.0-34.0); Mean Corpuscular HGB Conc 32.4 g/dL (31.5-36.5); Mean Corpuscular Volume 91 fL (80-100); Mean Platelet Volume 9.4 fL (9.1-12.4); NEUTROPHILS ABSOLUTE AUTO 4.48 K/mm3 (1.96-9.15); NEUTROPHILS PERCENT AUTO 73 % (41-73); Platelet Count 249 K/mm3 (150-400); RDW Coefficient Variation 13.5 % (11.7-14.2); RDW Standard Deviation 45.8 fL (35.1-46.3); Red Blood Cell Count 4.73 M/mm3 (4.30-5.90); White Blood Cell Count 6.15 K/mm3 (4.00-11.30)
[2018-11-01] MEDS ORDERED: B Complex #11 EACH PO (13:03)
[2018-11-01] MEDS ORDERED: STIOLTO RESPIMAT4 GM (13:03)
[2018-11-01 13:28] LABS: Alanine Aminotransfer (ALT/SGP 16 U/L (12-78); Albumin, Blood 3.7 g/dL (3.4-5.0); Albumin/Globulin Ratio 1.2 (0.8-1.8); Alk Phos 70 U/L (50-136); Anion Gap 4 mmol/L (6-16); Aspartate Aminotrans (AST/SGOT 17 U/L (12-37); Bilirubin, Total 0.6 mg/dL (0.1-1.0); Blood Urea Nitrogen 18 mg/dL (8-24); CO2, Blood 28 mmol/L (21-32); Calcium, Blood 8.8 mg/dL (8.5-10.1); Chloride, Blood 108 mmol/L (98-108); Globulin, Blood 3.1 g/dL (2.2-4.0); Glomerular Filtration Rate >60 (60-); Glucose, Blood 102 mg/dL (70-99); Potassium, Blood 4.1 mmol/L (3.5-5.5); Sodium, Blood 140 mmol/L (136-145); Total Protein, Blood 6.8 g/dL (6.4-8.2); Troponin I <0.015 ng/mL (0.000-0.040)
== END 2018-11-01 14:18 | disposition home or self-care (01) ==
LOC: ER 12:18
PROVIDERS: Emergency Medicine
DX: K21.9 Gastro-esophageal reflux disease without esophagitis (principal); I11.0 Hypertensive heart disease with heart failure; I50.22 Chronic systolic (congestive) heart failure; J44.9 Chronic obstructive pulmonary disease, unspecified; I25.10 Atherosclerotic heart disease of native coronary artery without angina pectoris; Z87.01 Personal history of pneumonia (recurrent); Z88.8 Allergy status to other drugs, medicaments and biological substances; Z79.899 Other long term (current) drug therapy; Z79.82 Long term (current) use of aspirin; Z79.02 Long term (current) use of antithrombotics/antiplatelets
CPT/HCPCS: 71046; 80053; 84484; 85025; 93005; 93010; 99285-25

== ENCOUNTER 2018-11-30 00:33 | Observation (INO) | payer MEDICARE ==
[~2018-11-30] VITALS: Ht 177.8 cm; Wt 54.4 kg
[~2018-11-30 00:33] MED LIST changes: +ASPI81CH PO; +ATOR10 PO; +Amiodarone HCl200 MG PO; +B Complex #11 EACH PO; +CLOP75 PO; +FERSU300 PO; +Hair, Skin & N1 EACH PO; +LEVSOD50 PO; +LISI5 PO; +METO25ER PO; +NITR.4SL SL; +PANT20 PO; +STIOLTO RESPIMAT4 GM; +VITAMIN D31000 UNIT PO; +Vitamin B-121000 MCG PO
[2018-11-30 00:51] LABS: PCO2 Arterial 39.4 mmHg (35-45); PO2 Arterial 100 mmHg (80-100); pH Blood Arterial 7.41 (7.35-7.45)
[2018-11-30 03:47] LABS: Alanine Aminotransfer (ALT/SGP 23 U/L (12-78); Albumin, Blood 3.8 g/dL (3.4-5.0); Albumin/Globulin Ratio 1.1 (0.8-1.8); Alk Phos 92 U/L (50-136); Aspartate Aminotrans (AST/SGOT 23 U/L (12-37); Bilirubin, Total 0.5 mg/dL (0.1-1.0); Blood Urea Nitrogen 25 mg/dL (8-24); Bun/Creatinine Ratio 23.8 (12.0-20.0); CO2, Blood 27 mmol/L (21-32); Calcium, Blood 8.6 mg/dL (8.5-10.1); Creatinine, Blood 1.05 mg/dL (0.60-1.20); Globulin, Blood 3.5 g/dL (2.2-4.0); Glomerular Filtration Rate >60 (60-); Glucose, Blood 132 mg/dL (70-99); Potassium, Blood 4.1 mmol/L (3.5-5.5); Sodium, Blood 143 mmol/L (136-145); Total Protein, Blood 7.3 g/dL (6.4-8.2)
[2018-11-30 05:31] LABS: BASOPHILS ABSOLUTE AUTO 0.06 K/mm3 (0.00-0.23); BASOPHILS PERCENT AUTO 1 % (0-2); EOSINOPHILS ABSOLUTE AUTO 0.25 K/mm3 (0.00-0.68); EOSINOPHILS PERCENT AUTO 2 % (0-6); Hematocrit 49.2 % (37.0-53.0); Hemoglobin 15.8 g/dL (13.5-17.5); IMMATURE GRAN ABSOLUTE AUTO 0.03 K/mm3 (0.00-0.10); IMMATURE GRAN PERCENT AUTO 0 % (0-1); LYMPHOCYTES ABSOLUTE AUTO 3.66 K/mm3 (0.84-5.20); LYMPHOCYTES PERCENT AUTO 35 % (21-46); MONOCYTES ABSOLUTE AUTO 1.11 K/mm3 (0.16-1.47); MONOCYTES PERCENT AUTO 11 % (4-13); Mean Corpuscular HGB 28.8 pg (26.0-34.0); Mean Corpuscular HGB Conc 32.1 g/dL (31.5-36.5); Mean Corpuscular Volume 90 fL (80-100); Mean Platelet Volume 9.4 fL (9.1-12.4); NEUTROPHILS ABSOLUTE AUTO 5.26 K/mm3 (1.96-9.15); NEUTROPHILS PERCENT AUTO 51 % (41-73); Platelet Count 304 K/mm3 (150-400); RDW Coefficient Variation 12.7 % (11.7-14.2); RDW Standard Deviation 41.4 fL (35.1-46.3); Red Blood Cell Count 5.49 M/mm3 (4.30-5.90); White Blood Cell Count 10.37 K/mm3 (4.00-11.30)
[2018-11-30 05:33] LABS: Troponin I <0.015 ng/mL (0.000-0.040)
[2018-11-30 05:43] LABS: Anion Gap 8 mmol/L (6-16); Chloride, Blood 108 mmol/L (98-108)
[2018-11-30] MEDS ORDERED: AZIT500 PO (11:41)
[2018-11-30] MEDS ORDERED: DELTASONE20 MG PO (11:41)
[2018-11-30] MEDS ORDERED: LORA.5 PO (11:42)
[2018-11-30] MEDS ORDERED: Florastor250 MG PO (11:42)
== END 2018-11-30 12:12 | disposition home or self-care (01) ==
LOC: ER 00:33 → ERHOLD 00:34
PROVIDERS: Emergency Medicine; ADMIT Hospitalist
DX: J96.21 Acute and chronic respiratory failure with hypoxia (principal); J44.1 Chronic obstructive pulmonary disease with (acute) exacerbation; I50.22 Chronic systolic (congestive) heart failure; I48.91 Unspecified atrial fibrillation; I25.10 Atherosclerotic heart disease of native coronary artery without angina pectoris; J18.1 Lobar pneumonia, unspecified organism; B18.2 Chronic viral hepatitis C; K21.9 Gastro-esophageal reflux disease without esophagitis; Z87.891 Personal history of nicotine dependence; Z79.82 Long term (current) use of aspirin; Z79.899 Other long term (current) drug therapy; Z88.8 Allergy status to other drugs, medicaments and biological substances; Z79.02 Long term (current) use of antithrombotics/antiplatelets
CPT/HCPCS: 36415; 36600; 71045; 80053; 82803; 84484; 85025; 93005; 93010; 94644; 96360; 96361; 99285-25; G0378; J7030; J7512

== ENCOUNTER 2019-11-23 15:12 | Emergency (ER) | payer OTHER, MEDICARE ==
[~2019-11-23] VITALS: Ht 177.8 cm; Wt 52.2 kg
[~2019-11-23 15:12] MED LIST changes: +AZIT500 PO; +DELTASONE20 MG PO; +Florastor250 MG PO; +LORA.5 PO
[2019-11-23] MEDS ORDERED: Amiodarone HCl200 MG PO (15:33)
[2019-11-23] MEDS ORDERED: ALBU3IS INH (15:33)
[2019-11-23] MEDS ORDERED: ATOR20 PO (15:33)
[2019-11-23] MEDS ORDERED: ALBU90OI INH (15:33)
[2019-11-23] MEDS ORDERED: Aspirin EC81 MG PO (15:33)
[2019-11-23] MEDS ORDERED: VITAMIN D325 MC3 PO (15:34)
[2019-11-23] MEDS ORDERED: CLOP75 PO (15:34)
[2019-11-23] MEDS ORDERED: Vitamin B-121000 MCG PO (15:34)
[2019-11-23] MEDS ORDERED: HYDPAM50 PO (15:35)
[2019-11-23] MEDS ORDERED: FERSU300 PO (15:35)
[2019-11-23] MEDS ORDERED: LEVSOD25 PO (15:36)
[2019-11-23] MEDS ORDERED: METO25ER PO (15:37)
[2019-11-23] MEDS ORDERED: MULTIPLE VITAM1 EACH PO (15:37)
[2019-11-23] MEDS ORDERED: LISI20 PO ×2 (15:37)
[2019-11-23] MEDS ORDERED: Vitamin B Comple1 EA PO (15:38)
[2019-11-23] MEDS ORDERED: PANTOPRAZOLE SO20 MG PO (15:38)
[2019-11-23 15:49] LABS: BASOPHILS ABSOLUTE AUTO 0.04 K/mm3 (0.00-0.23); BASOPHILS PERCENT AUTO 0 % (0-2); EOSINOPHILS ABSOLUTE AUTO 0.15 K/mm3 (0.00-0.68); EOSINOPHILS PERCENT AUTO 1 % (0-6); Hematocrit 43.7 % (37.0-53.0); Hemoglobin 14.2 g/dL (13.5-17.5); IMMATURE GRAN ABSOLUTE AUTO 0.04 K/mm3 (0.00-0.10); IMMATURE GRAN PERCENT AUTO 0 % (0-1); LYMPHOCYTES PERCENT AUTO 7 % (21-46); MONOCYTES ABSOLUTE AUTO 1.39 K/mm3 (0.16-1.47); MONOCYTES PERCENT AUTO 13 % (4-13); Mean Corpuscular HGB 28.6 pg (26.0-34.0); Mean Corpuscular HGB Conc 32.5 g/dL (31.5-36.5); Mean Corpuscular Volume 88 fL (80-100); Mean Platelet Volume 9.1 fL (9.1-12.4); NEUTROPHILS ABSOLUTE AUTO 8.51 K/mm3 (1.96-9.15); NEUTROPHILS PERCENT AUTO 78 % (41-73); Platelet Count 295 K/mm3 (150-400); RDW Coefficient Variation 13.7 % (11.7-14.2); RDW Standard Deviation 44.3 fL (35.1-46.3); Red Blood Cell Count 4.96 M/mm3 (4.30-5.90); White Blood Cell Count 10.93 K/mm3 (4.00-11.30)
[2019-11-23 16:12] LABS: Alanine Aminotransfer (ALT/SGP 20 U/L (12-78); Albumin, Blood 3.4 g/dL (3.4-5.0); Albumin/Globulin Ratio 0.9 (0.8-1.8); Alk Phos 81 U/L (50-136); Anion Gap 5 mmol/L (6-16); Aspartate Aminotrans (AST/SGOT 17 U/L (12-37); Bilirubin, Total 0.8 mg/dL (0.1-1.0); Blood Urea Nitrogen 22 mg/dL (8-24); Bun/Creatinine Ratio 17.5 (12.0-20.0); CO2, Blood 28 mmol/L (21-32); Calcium, Blood 8.8 mg/dL (8.5-10.1); Chloride, Blood 106 mmol/L (98-108); Creatinine, Blood 1.26 mg/dL (0.60-1.20); Globulin, Blood 3.7 g/dL (2.2-4.0); Glomerular Filtration Rate >60 (60-); Glucose, Blood 102 mg/dL (70-99); Sodium, Blood 139 mmol/L (136-145); Total Protein, Blood 7.1 g/dL (6.4-8.2); Troponin I <0.015 ng/mL (0.000-0.040)
== END 2019-11-23 21:03 | disposition home or self-care (01) ==
LOC: ER 15:12
PROVIDERS: Physician Assistant
DX: R07.89 Other chest pain (principal); R06.02 Shortness of breath; R53.1 Weakness; J44.9 Chronic obstructive pulmonary disease, unspecified
CPT/HCPCS: 71046; 80053; 83880; 84484; 85025; 93005; 93010; 99285-25; J7030

== ENCOUNTER 2020-04-27 00:08 | Inpatient (IN) | payer OTHER, MEDICARE ==
[~2020-04-27] VITALS: Ht 182.9 cm; Wt 55.0 kg
[~2020-04-27 00:08] MED LIST changes: +ALBU3IS INH; +ATOR20 PO; +Aspirin EC81 MG PO; +HYDPAM50 PO; +LEVSOD25 PO; +MULTIPLE VITAM1 EACH PO; +PANTOPRAZOLE SO20 MG PO; +VITAMIN D325 MC3 PO; +Vitamin B Comple1 EA PO
[2020-04-27 00:30] LABS: PO2 Arterial 172 mmHg (80-100)
[2020-04-27 00:31] LABS: PCO2 Arterial 72 mmHg (35-45); pH Blood Arterial 7.19 (7.35-7.45)
[2020-04-27 01:06] LABS: BASOPHILS ABSOLUTE AUTO 0.08 K/mm3 (0.00-0.23); BASOPHILS PERCENT AUTO 1 % (0-2); EOSINOPHILS ABSOLUTE AUTO 0.48 K/mm3 (0.00-0.68); EOSINOPHILS PERCENT AUTO 5 % (0-6); Hematocrit 47.7 % (37.0-53.0); Hemoglobin 15.3 g/dL (13.5-17.5); IMMATURE GRAN ABSOLUTE AUTO 0.03 K/mm3 (0.00-0.10); IMMATURE GRAN PERCENT AUTO 0 % (0-1); LYMPHOCYTES ABSOLUTE AUTO 4.91 K/mm3 (0.84-5.20); LYMPHOCYTES PERCENT AUTO 46 % (21-46); MONOCYTES ABSOLUTE AUTO 0.87 K/mm3 (0.16-1.47); MONOCYTES PERCENT AUTO 8 % (4-13); Mean Corpuscular HGB 28.5 pg (26.0-34.0); Mean Corpuscular HGB Conc 32.1 g/dL (31.5-36.5); Mean Corpuscular Volume 89 fL (80-100); Mean Platelet Volume 9.6 fL (9.1-12.4); NEUTROPHILS ABSOLUTE AUTO 4.24 K/mm3 (1.96-9.15); NEUTROPHILS PERCENT AUTO 40 % (41-73); Platelet Count 408 K/mm3 (150-400); RDW Coefficient Variation 13.2 % (11.7-14.2); RDW Standard Deviation 43.4 fL (35.1-46.3); Red Blood Cell Count 5.37 M/mm3 (4.30-5.90); White Blood Cell Count 10.61 K/mm3 (4.00-11.30)
[2020-04-27 01:40] LABS: Alanine Aminotransfer (ALT/SGP 13 U/L (12-78); Albumin, Blood 2.6 g/dL (3.4-5.0); Albumin/Globulin Ratio 0.8 (0.8-1.8); Alk Phos 82 U/L (50-136); Anion Gap 6 mmol/L (6-16); Aspartate Aminotrans (AST/SGOT 10 U/L (12-37); Bilirubin, Total 0.3 mg/dL (0.1-1.0); Blood Urea Nitrogen 19 mg/dL (8-24); Bun/Creatinine Ratio 21.7 (12.0-20.0); CO2, Blood 27 mmol/L (21-32); Calcium, Blood 7.7 mg/dL (8.5-10.1); Chloride, Blood 113 mmol/L (98-108); Creatinine, Blood 0.88 mg/dL (0.60-1.20); Globulin, Blood 3.1 g/dL (2.2-4.0); Glomerular Filtration Rate >60 (60-); Glucose, Blood 198 mg/dL (70-99); Magnesium, Blood 1.8 mg/dL (1.6-2.4); Potassium, Blood 3.7 mmol/L (3.5-5.5); Sodium, Blood 146 mmol/L (136-145); Total Protein, Blood 5.7 g/dL (6.4-8.2); Troponin I 0.036 ng/mL (0.000-0.040)
--- NOTE | 2020-04-27 17:37 | NUR ---
SHIFT SUMMARY; ER ADMIT, TRANFSERS FROM GURNEY TO BED INDEPENANTLY, ROOM AIR SPEAKING FULL SENTENCES, A/A/OX4. L/S DIM THROUGHOUT, VSS, REPOSITIONS SELF IN BED, SBA IN ROOM. BIPAP IN ROOM IF NEEDED, WILL CONTINUE TO MONITOR AND TREAT UNTIL CHANGE OF SHIFT.
[2020-04-28 04:33] LABS: BASOPHILS ABSOLUTE AUTO 0.01 K/mm3 (0.00-0.23); BASOPHILS PERCENT AUTO 0 % (0-2); EOSINOPHILS PERCENT AUTO 0 % (0-6); Hematocrit 41.3 % (37.0-53.0); Hemoglobin 13.4 g/dL (13.5-17.5); IMMATURE GRAN ABSOLUTE AUTO 0.07 K/mm3 (0.00-0.10); IMMATURE GRAN PERCENT AUTO 1 % (0-1); LYMPHOCYTES ABSOLUTE AUTO 0.46 K/mm3 (0.84-5.20); LYMPHOCYTES PERCENT AUTO 3 % (21-46); MONOCYTES ABSOLUTE AUTO 0.55 K/mm3 (0.16-1.47); MONOCYTES PERCENT AUTO 4 % (4-13); Mean Corpuscular HGB 28.2 pg (26.0-34.0); Mean Corpuscular HGB Conc 32.4 g/dL (31.5-36.5); Mean Corpuscular Volume 87 fL (80-100); Mean Platelet Volume 9.2 fL (9.1-12.4); NEUTROPHILS ABSOLUTE AUTO 12.27 K/mm3 (1.96-9.15); NEUTROPHILS PERCENT AUTO 92 % (41-73); Platelet Count 308 K/mm3 (150-400); RDW Coefficient Variation 13.4 % (11.7-14.2); RDW Standard Deviation 42.9 fL (35.1-46.3); Red Blood Cell Count 4.76 M/mm3 (4.30-5.90); White Blood Cell Count 13.36 K/mm3 (4.00-11.30)
--- NOTE | 2020-04-28 04:50 | NUR ---
SHIFT SUMMARY NO ACUTE CHANGES THIS SHIFT. VSS. AXO. REMAINS IN SR. REMAINS ON RA, SPO2 >96%. LUNGS CLEAR/DIM. BIPAP AT BEDSIDE, NOT USED THIS SHIFT. PT RESTING FOR MOST OF SHIFT. STATES BREATHING EASILY THIS SHIFT. USES CALL LIGHT APPROPRIATELY. WILL CONTINUE TO MONITOR UNTIL SHIFT CHANGE.
[2020-04-28 05:10] LABS: Alanine Aminotransfer (ALT/SGP 13 U/L (12-78); Albumin/Globulin Ratio 0.9 (0.8-1.8); Alk Phos 78 U/L (50-136); Anion Gap 9 mmol/L (6-16); Aspartate Aminotrans (AST/SGOT 15 U/L (12-37); Bilirubin, Total 0.5 mg/dL (0.1-1.0); Blood Urea Nitrogen 29 mg/dL (8-24); Bun/Creatinine Ratio 35.7 (12.0-20.0); CO2, Blood 26 mmol/L (21-32); Calcium, Blood 8.9 mg/dL (8.5-10.1); Chloride, Blood 104 mmol/L (98-108); Creatinine, Blood 0.81 mg/dL (0.60-1.20); Globulin, Blood 3.5 g/dL (2.2-4.0); Glomerular Filtration Rate >60 (60-); Glucose, Blood 136 mg/dL (70-99); Potassium, Blood 4.4 mmol/L (3.5-5.5); Sodium, Blood 139 mmol/L (136-145); Total Protein, Blood 6.5 g/dL (6.4-8.2); Troponin I 0.296 ng/mL (0.000-0.040)
--- NOTE | 2020-04-28 17:31 | NUR ---
SHIFT SUMMARY; NO ACUTE CHANGES DURING SHIFT TODAY. REMAINED ON RA WITHOUT SIGNS OF RESPIRATORY DISTRESS. O2 SAT 97-99%. VSS, ECHO COMPLETE TODAY AND PE STUDY. REPOSITIONS SELF IN BED, USES URINAL AT BEDSIDE. PLEASANT AND COOPERATIVE WITH CARE. WILL CONTINUE TO MONITOR AND TREAT UNTIL CHANGE OF SHIFT.
[2020-04-29 00:05] LABS: Influenza A, PCR NEGATIVE (NEGATIVE); Influenza B, PCR NEGATIVE (NEGATIVE); Resp Syncytial Virus, PCR NEGATIVE (NEGATIVE); SARS-Cov-2 (COVID-19) PCR, MMC NEGATIVE (NEGATIVE)
--- NOTE | 2020-04-29 05:42 | NUR ---
SHIFT SUMMARY NO ACUTE CHANGES THIS SHIFT. VSS. REMAINS AXO. ON RA. IN SR. INDEPENDENT IN ROOM. HAS DENIED CP THIS SHIFT. DENIES SOB/DYSPNEA. COVID SWAB COMPLETED, NEGATIVE PRE ANGIOGRAM. PT NPO IN PREPARATION FOR AM ANGIO. PT HAS HAD ANGIO IN PAST AND STATES BEING PREPARED FOR IT. WILL CONTINUE TO MONITOR UNTIL SHIFT CHANGE.
--- NOTE | 2020-04-29 17:32 | NUR ---
SHIFT SUMMARY: PT NPO T/OUT SHIFT IN PREPARATION FOR RIBBON INKER. PT CONTINUES A&OX4, RESP EVEN AND UNLABORED AT REST, MILD DYSPNEA WITH TALKING, HRR. PT ABLE TO TAKE PILLS ONE AT A TIME, USING CALL LIGHT APPROPRIATELY. PT CONTINUES IN RIBBON INKER AT THIS TIME.
--- NOTE | 2020-04-29 20:21 | NUR ---
TR BAND REMOVAL REMOVED 2ML FROM TR BAND R RADIAL SITE. NO SIGNS OF BLEEDING, SWELLING, PAIN. WILL CONTINUE TO MONITOR. VSS.
[2020-04-30 05:17] LABS: Albumin, Blood 2.7 g/dL (3.4-5.0); Anion Gap 5 mmol/L (6-16); Blood Urea Nitrogen 31 mg/dL (8-24); Bun/Creatinine Ratio 39.2 (12.0-20.0); CHOL/HDL RATIO 1.9; CO2, Blood 27 mmol/L (21-32); Calcium, Blood 8.3 mg/dL (8.5-10.1); Chloride, Blood 109 mmol/L (98-108); Cholesterol 147 mg/dL (50-200); Creatinine, Blood 0.79 mg/dL (0.60-1.20); Glomerular Filtration Rate >60 (60-); Glucose, Blood 106 mg/dL (70-99); HDL Cholesterol 79 mg/dL (>39); LDL/HDL RATIO 0.7; Low Density Lipoprotein Chol 55 mg/dL (0-110); Phosphorus, Blood 3.6 mg/dL (2.5-4.9); Potassium, Blood 4.3 mmol/L (3.5-5.5); Sodium, Blood 141 mmol/L (136-145); Triglycerides 63 mg/dL (30-160); Very Low Density Lipoprot Chol 12 mg/dL (6-32)
[2020-04-30] MEDS ORDERED: Isosorbide Mono30 MG PO (12:32)
[2020-04-30] MEDS ORDERED: NITROGLYCERIN0.4 M2 SL (12:33)
[2020-04-30] MEDS ORDERED: SYMBICORT 80-10.2 GM INH (12:34)
[2020-04-30] MEDS ORDERED: Prednisone10 MG PO (12:35)
== END 2020-04-30 14:30 | disposition home or self-care (01) | DRG 246 ==
LOC: ER 00:08 → ERHOLD 03:09 → PCU 03:09
PROVIDERS: Emergency Medicine; Internal Medicine; Internal Medicine Interventional Cardiology; ADMIT Internal Medicine
PROC: 5A09357 Assistance with Respiratory Ventilation, Less than 24 Consecutive Hours, Continuous Positive Airway Pressure (ICD-10-PCS; 2020-04-27)
PROC: 027034Z Dilation of Coronary Artery, One Artery with Drug-eluting Intraluminal Device, Percutaneous Approach (ICD-10-PCS; principal; 2020-04-29)
PROC: 4A023N7 Measurement of Cardiac Sampling and Pressure, Left Heart, Percutaneous Approach (ICD-10-PCS; 2020-04-29)
PROC: B2111ZZ Fluoroscopy of Multiple Coronary Arteries using Low Osmolar Contrast (ICD-10-PCS; 2020-04-29)
DX: I21.4 Non-ST elevation (NSTEMI) myocardial infarction (principal); J96.21 Acute and chronic respiratory failure with hypoxia; J96.22 Acute and chronic respiratory failure with hypercapnia; I50.22 Chronic systolic (congestive) heart failure; E87.0 Hyperosmolality and hypernatremia; I48.92 Unspecified atrial flutter; J43.9 Emphysema, unspecified; B18.2 Chronic viral hepatitis C; I48.91 Unspecified atrial fibrillation; E86.0 Dehydration; E78.5 Hyperlipidemia, unspecified; E03.9 Hypothyroidism, unspecified; K21.9 Gastro-esophageal reflux disease without esophagitis; F43.10 Post-traumatic stress disorder, unspecified; I25.10 Atherosclerotic heart disease of native coronary artery without angina pectoris; Z88.8 Allergy status to other drugs, medicaments and biological substances; I25.2 Old myocardial infarction; Z90.49 Acquired absence of other specified parts of digestive tract; Z87.891 Personal history of nicotine dependence; Y83.8 Other surgical procedures as the cause of abnormal reaction of the patient, or of later complication, without mention of misadventure at the time of the procedure
CPT/HCPCS: 0241U; 36415; 36600; 71045; 71260; 80053; 80061; 80069; 82803; 82947; 83735; 83880; 84484; 85025; 85347; 85379; 93005; 93010; 93306; 93458; 94640; 94660; 94760; 94762; 96365; 96375; 96376; 99152; 99153; 99285-25; A9270; C1725; C1769; C1874; C1887; C1894; C9113; C9600; J1644; J1650; J2250; J2270; J2370; J2930; J3010; J7030; J7040; J7050; J7512; Q9967

== ENCOUNTER 2020-09-03 15:37 | Emergency (ER) | payer OTHER ==
[~2020-09-03] VITALS: Ht 177.8 cm; Wt 52.2 kg
[~2020-09-03 15:37] MED LIST changes: +Isosorbide Mono30 MG PO; +NITROGLYCERIN0.4 M2 SL; +Prednisone10 MG PO; +SYMBICORT 80-10.2 GM INH
[2020-09-03 16:20] LABS: BASOPHILS ABSOLUTE AUTO 0.04 K/mm3 (0.00-0.23); BASOPHILS PERCENT AUTO 1 % (0-2); EOSINOPHILS ABSOLUTE AUTO 0.22 K/mm3 (0.00-0.68); EOSINOPHILS PERCENT AUTO 3 % (0-6); Hematocrit 40.9 % (37.0-53.0); Hemoglobin 13.1 g/dL (13.5-17.5); IMMATURE GRAN ABSOLUTE AUTO 0.01 K/mm3 (0.00-0.10); IMMATURE GRAN PERCENT AUTO 0 % (0-1); LYMPHOCYTES ABSOLUTE AUTO 1.09 K/mm3 (0.84-5.20); LYMPHOCYTES PERCENT AUTO 17 % (21-46); MONOCYTES ABSOLUTE AUTO 0.62 K/mm3 (0.16-1.47); MONOCYTES PERCENT AUTO 10 % (4-13); Mean Corpuscular HGB 27.2 pg (26.0-34.0); Mean Corpuscular Volume 85 fL (80-100); Mean Platelet Volume 9.1 fL (9.1-12.4); NEUTROPHILS ABSOLUTE AUTO 4.43 K/mm3 (1.96-9.15); NEUTROPHILS PERCENT AUTO 69 % (41-73); Platelet Count 265 K/mm3 (150-400); RDW Coefficient Variation 13.3 % (11.7-14.2); RDW Standard Deviation 41.2 fL (35.1-46.3); Red Blood Cell Count 4.82 M/mm3 (4.30-5.90); White Blood Cell Count 6.41 K/mm3 (4.00-11.30)
[2020-09-03 16:40] LABS: Alanine Aminotransfer (ALT/SGP 14 U/L (12-78); Albumin, Blood 3.4 g/dL (3.4-5.0); Albumin/Globulin Ratio 1.1 (0.8-1.8); Alk Phos 71 U/L (50-136); Anion Gap 5 mmol/L (6-16); Aspartate Aminotrans (AST/SGOT 13 U/L (12-37); Bilirubin, Total 0.5 mg/dL (0.1-1.0); Blood Urea Nitrogen 23 mg/dL (8-24); Bun/Creatinine Ratio 28.8 (12.0-20.0); CO2, Blood 27 mmol/L (21-32); Calcium, Blood 8.8 mg/dL (8.5-10.1); Chloride, Blood 110 mmol/L (98-108); Globulin, Blood 3.2 g/dL (2.2-4.0); Glomerular Filtration Rate >60 (60-); Glucose, Blood 104 mg/dL (70-99); Sodium, Blood 142 mmol/L (136-145); Total Protein, Blood 6.6 g/dL (6.4-8.2); Troponin I <0.015 ng/mL (0.000-0.040)
== END 2020-09-03 18:14 | disposition home or self-care (01) ==
LOC: ER 15:37
PROVIDERS: Emergency Medicine
DX: R06.02 Shortness of breath (principal); J44.9 Chronic obstructive pulmonary disease, unspecified; I25.2 Old myocardial infarction; Z79.82 Long term (current) use of aspirin; Z79.02 Long term (current) use of antithrombotics/antiplatelets; Z88.8 Allergy status to other drugs, medicaments and biological substances; Z79.899 Other long term (current) drug therapy; Z87.891 Personal history of nicotine dependence
CPT/HCPCS: 71045; 80053; 83880; 84484; 85025; 93005; 93010; 99285-25

== ENCOUNTER 2021-04-22 09:53 | Day surgery (SDC) | payer OTHER ==
[~2021-04-22] VITALS: Ht 180.3 cm; Wt 59.0 kg
--- NOTE | 2021-04-22 11:00 | NUR ---
04/22/21 1100 BERLIN CHOWDHURY TETRACAINE DROP INSTILLED AT 1048/ PLEDGETT INSERTED AT 1050
--- NOTE | 2021-04-22 12:27 | NUR ---
04/22/21 1226 JETHRO BARBOSA PT STATES HIS EYE IS SLIGHTLY IRRITATED BUT NOT WHAT HED SAY IS PAINFUL
== END 2021-04-22 12:27 | disposition home or self-care (01) ==
LOC: ORSCSDS 09:53
PROVIDERS: Ophthalmology
PROC: 08RJ3JZ Replacement of Right Lens with Synthetic Substitute, Percutaneous Approach (ICD-10-PCS; principal; 2021-04-22 11:30)
DX: H25.11 Age-related nuclear cataract, right eye (principal); I48.92 Unspecified atrial flutter; J44.9 Chronic obstructive pulmonary disease, unspecified; I25.10 Atherosclerotic heart disease of native coronary artery without angina pectoris; E78.5 Hyperlipidemia, unspecified; I10 Essential (primary) hypertension; G47.33 Obstructive sleep apnea (adult) (pediatric); I25.2 Old myocardial infarction; Z79.899 Other long term (current) drug therapy; Z87.891 Personal history of nicotine dependence; I25.5 Ischemic cardiomyopathy; Z79.02 Long term (current) use of antithrombotics/antiplatelets
CPT/HCPCS: J2001; J2250; J3010; J3301; J7040; V2632

== ENCOUNTER 2021-05-01 15:44 | Observation (INO) | payer OTHER ==
[~2021-05-01] VITALS: Ht 177.8 cm; Wt 59.9 kg
[~2021-05-01 15:44] MED LIST changes: -ATOR20 PO; +ATOR40TA PO
[2021-05-01 16:14] LABS: BASOPHILS ABSOLUTE AUTO 0.04 K/mm3 (0.00-0.23); BASOPHILS PERCENT AUTO 1 % (0-2); EOSINOPHILS ABSOLUTE AUTO 0.31 K/mm3 (0.00-0.68); EOSINOPHILS PERCENT AUTO 4 % (0-6); Hematocrit 44.4 % (37.0-53.0); Hemoglobin 14.4 g/dL (13.5-17.5); IMMATURE GRAN ABSOLUTE AUTO 0.02 K/mm3 (0.00-0.10); IMMATURE GRAN PERCENT AUTO 0 % (0-1); LYMPHOCYTES ABSOLUTE AUTO 2.65 K/mm3 (0.84-5.20); LYMPHOCYTES PERCENT AUTO 35 % (21-46); MONOCYTES ABSOLUTE AUTO 0.89 K/mm3 (0.16-1.47); MONOCYTES PERCENT AUTO 12 % (4-13); Mean Corpuscular HGB 27.9 pg (26.0-34.0); Mean Corpuscular HGB Conc 32.4 g/dL (31.5-36.5); Mean Corpuscular Volume 86 fL (80-100); Mean Platelet Volume 8.8 fL (9.1-12.4); NEUTROPHILS ABSOLUTE AUTO 3.61 K/mm3 (1.96-9.15); NEUTROPHILS PERCENT AUTO 48 % (41-73); Platelet Count 279 K/mm3 (150-400); RDW Coefficient Variation 13.5 % (11.7-14.2); RDW Standard Deviation 42.4 fL (35.1-46.3); Red Blood Cell Count 5.16 M/mm3 (4.30-5.90); White Blood Cell Count 7.52 K/mm3 (4.00-11.30)
[2021-05-01 16:35] LABS: Alanine Aminotransfer (ALT/SGP 16 U/L (12-78); Albumin, Blood 3.7 g/dL (3.4-5.0); Alk Phos 91 U/L (50-136); Anion Gap 7 mmol/L (6-16); Aspartate Aminotrans (AST/SGOT 14 U/L (12-37); Bilirubin, Total 0.7 mg/dL (0.1-1.0); Blood Urea Nitrogen 25 mg/dL (8-24); Bun/Creatinine Ratio 29.3 (12.0-20.0); CO2, Blood 26 mmol/L (21-32); Calcium, Blood 8.8 mg/dL (8.5-10.1); Chloride, Blood 108 mmol/L (98-108); Creatinine, Blood 0.85 mg/dL (0.60-1.20); Globulin, Blood 3.7 g/dL (2.2-4.0); Glomerular Filtration Rate >60 (60-); Glucose, Blood 140 mg/dL (70-99); Potassium, Blood 3.8 mmol/L (3.5-5.5); Sodium, Blood 141 mmol/L (136-145); Total Protein, Blood 7.4 g/dL (6.4-8.2)
[2021-05-01 23:29] LABS: Anti-Xa UFH, PHA Monitoring <0.10 IU/mL; International Normalized Ratio 1.01; Prothrombin Time Results 10.6 Sec (9.7-11.5)
[2021-05-02] MEDS ORDERED: AMLO5 PO (01:00)
[2021-05-02] MEDS ORDERED: AQUORAL10 ML PO (01:02)
[2021-05-02] MEDS ORDERED: ISOSORBIDE MONO60 MG PO (01:03)
[2021-05-02] MEDS ORDERED: SODIUM FLUORID100 M2 DT (01:06)
[2021-05-02] MEDS ORDERED: TIOT18 INH (01:08)
[2021-05-02 03:02] LABS: BASOPHILS ABSOLUTE AUTO 0.01 K/mm3 (0.00-0.23); BASOPHILS PERCENT AUTO 0 % (0-2); EOSINOPHILS PERCENT AUTO 0 % (0-6); Hematocrit 39.8 % (37.0-53.0); Hemoglobin 13.3 g/dL (13.5-17.5); IMMATURE GRAN ABSOLUTE AUTO 0.02 K/mm3 (0.00-0.10); IMMATURE GRAN PERCENT AUTO 0 % (0-1); LYMPHOCYTES ABSOLUTE AUTO 0.46 K/mm3 (0.84-5.20); LYMPHOCYTES PERCENT AUTO 8 % (21-46); MONOCYTES ABSOLUTE AUTO 0.33 K/mm3 (0.16-1.47); MONOCYTES PERCENT AUTO 5 % (4-13); Mean Corpuscular HGB 27.8 pg (26.0-34.0); Mean Corpuscular HGB Conc 33.4 g/dL (31.5-36.5); Mean Corpuscular Volume 83 fL (80-100); Mean Platelet Volume 8.5 fL (9.1-12.4); NEUTROPHILS ABSOLUTE AUTO 5.33 K/mm3 (1.96-9.15); NEUTROPHILS PERCENT AUTO 87 % (41-73); Platelet Count 242 K/mm3 (150-400); RDW Coefficient Variation 13.4 % (11.7-14.2); RDW Standard Deviation 41.1 fL (35.1-46.3); Red Blood Cell Count 4.78 M/mm3 (4.30-5.90); White Blood Cell Count 6.15 K/mm3 (4.00-11.30)
[2021-05-02 03:20] LABS: Alanine Aminotransfer (ALT/SGP 13 U/L (12-78); Albumin, Blood 3.4 g/dL (3.4-5.0); Alk Phos 82 U/L (50-136); Anion Gap 4 mmol/L (6-16); Aspartate Aminotrans (AST/SGOT 12 U/L (12-37); Bilirubin, Total 0.6 mg/dL (0.1-1.0); Blood Urea Nitrogen 26 mg/dL (8-24); Bun/Creatinine Ratio 31.5 (12.0-20.0); CO2, Blood 29 mmol/L (21-32); Chloride, Blood 107 mmol/L (98-108); Creatinine, Blood 0.83 mg/dL (0.60-1.20); Globulin, Blood 3.3 g/dL (2.2-4.0); Glomerular Filtration Rate >60 (60-); Glucose, Blood 141 mg/dL (70-99); Sodium, Blood 140 mmol/L (136-145); Total Protein, Blood 6.7 g/dL (6.4-8.2)
[2021-05-02 03:30] LABS: CHOL/HDL RATIO 1.9; Cholesterol 161 mg/dL (50-200); HDL Cholesterol 85 mg/dL (>39); LDL/HDL RATIO 0.8; Low Density Lipoprotein Chol 71 mg/dL (0-110); Triglycerides 24 mg/dL (30-160); Very Low Density Lipoprot Chol 4 mg/dL (6-32)
--- NOTE | 2021-05-02 05:32 | NUR ---
Patient is alert and oriented x4, hard of hearing. He did not bring hearing aids. No complains of chest pain. No sob. Patient is in telemetry. Troponins are high, informed MD Bass of Troponin results, states to continue to monitor patient. Patient is in heparin drip. Start dose is 15 un/kg/hr. CPAP ordered for night use, pt confudse. Able to let needs be known. Skin intact. Call light within reach.
--- NOTE | 2021-05-02 11:39 | NUR ---
UPDATED PT'S , PT GOING TO THE CREDIT OPERATIONS SPECIALIST THIS AFTERNOON AND WILL BE IN A PCU OR ICU ROOM AFTER, WILL UPDATE AGAIN AFTER ROOM ASSIGNMENT GIVEN
--- NOTE | 2021-05-02 12:42 | NUR ---
PT TO AIR TECHNICIAN VIA W/C. HEPARIN GTT SHIRLEY'Rosa.
--- NOTE | 2021-05-02 13:42 | NUR ---
REPORT GIVEN TO GLOBAL RISK MANAGEMENT DIRECTOR KOBY. PT TO GO TO U 19. ALL BELONGINGS WILL BE TAKEN TO NEW ROOM.
--- NOTE | 2021-05-02 15:55 | NUR ---
1550 PATIENT RIGHT GROIN SHEATH PULLED AND MANUAL PRESSURE HELD. NIBP WAS LOW, SBP 90'S AT START OF PULL, CONTINUE TO MONITOR. HOB FLAT. PATIENT TOLERATED WELL.
--- NOTE | 2021-05-02 16:12 | NUR ---
HEMOSTASIS OF THE RIGHT GROIN WITH RENETTA PAD AND TEGADERM. PLETH ON RIGHT GREAT TOE 100%. RIGHT FOOT PULSES. ATTEPMTED TO TAKE AIR FROM THE TR BAND BUT BLEEDING NOTED AFTER 3 ML OF AIR RELEASED. 3 ML OF AIR REPLEASED. NO FURTHER BLEEDING NOTED. REPORTED CALLED TO RN OF PCU # [id number]. PATIENT TRANSFERED TO PCU #[id number] FOR CONTINUED CARE.
--- NOTE | 2021-05-02 18:06 | NUR ---
ASSUMED CARE FROM HEART CENTER AT 1630 FOLLOWING ANGIO. RIGHT RADIAL TR BAND IN PLACE AND RENETTA TO RIGHT GROIN. RIGHT RADIAL PULSE PALPABLE, MOVES ALL FINGERS WITHOUT DIFFICULTY, CAP REFILL <3. RIGHT GROIN RENETTA PATCH, PEDAL PULSE PALPBALE, CAP REFILL <3. CHARGE NURSE TO ROOM TO ASSESS ALEX SITE. SLIGHTLY SWOLLEN UNDER PATCH, SLIGHT AREA OF BUISING NEAR SITE. PRESSURE HELD BY HOUSEHOLD APPLIANCES SALESPERSON TO AREA FOR 10MINS. NO ACTIVE BLEEDING ON DRESSING. A/A/OX4, DENIES CHEST PAIN OR SOB, VSS, WILL CONTINUE TO MONITOR AND TREAT.
--- NOTE | 2021-05-02 21:09 | NUR ---
TR BAND OFF AT THIS TIME. NO BRUISING, NO BLEEDING, NO HEMATOMA. OPSITE PLACED. ARM BOARD IN PLACE. GROIN SITE UNCHANGED FROM CARE ASSUMPTION, SOME BRUISING, HAS NOT GROWN FROM OUTLINE, SOME SWELLING BUT SITE SOFT, MODERATELY TENDER. SMALL LAC VIEUX OF BLEEDING ON RENETTA DRESSING, HAS NOT GONE OUTSIDE THE OUTLINE WELL.
[2021-05-03 04:52] LABS: BASOPHILS ABSOLUTE AUTO 0.03 K/mm3 (0.00-0.23); BASOPHILS PERCENT AUTO 0 % (0-2); EOSINOPHILS ABSOLUTE AUTO 0.17 K/mm3 (0.00-0.68); EOSINOPHILS PERCENT AUTO 2 % (0-6); Hematocrit 38.4 % (37.0-53.0); Hemoglobin 12.4 g/dL (13.5-17.5); IMMATURE GRAN ABSOLUTE AUTO 0.02 K/mm3 (0.00-0.10); IMMATURE GRAN PERCENT AUTO 0 % (0-1); LYMPHOCYTES ABSOLUTE AUTO 1.26 K/mm3 (0.84-5.20); LYMPHOCYTES PERCENT AUTO 15 % (21-46); MONOCYTES ABSOLUTE AUTO 0.93 K/mm3 (0.16-1.47); MONOCYTES PERCENT AUTO 11 % (4-13); Mean Corpuscular HGB 27.3 pg (26.0-34.0); Mean Corpuscular HGB Conc 32.3 g/dL (31.5-36.5); Mean Corpuscular Volume 85 fL (80-100); Mean Platelet Volume 9.3 fL (9.1-12.4); NEUTROPHILS ABSOLUTE AUTO 6.29 K/mm3 (1.96-9.15); NEUTROPHILS PERCENT AUTO 72 % (41-73); Platelet Count 241 K/mm3 (150-400); RDW Coefficient Variation 13.7 % (11.7-14.2); RDW Standard Deviation 42.4 fL (35.1-46.3); Red Blood Cell Count 4.54 M/mm3 (4.30-5.90)
[2021-05-03 05:21] LABS: Anion Gap 6 mmol/L (6-16); Blood Urea Nitrogen 27 mg/dL (8-24); Bun/Creatinine Ratio 34.6 (12.0-20.0); CO2, Blood 26 mmol/L (21-32); Calcium, Blood 8.7 mg/dL (8.5-10.1); Chloride, Blood 108 mmol/L (98-108); Creatinine, Blood 0.78 mg/dL (0.60-1.20); Glomerular Filtration Rate >60 (60-); Glucose, Blood 88 mg/dL (70-99); Sodium, Blood 140 mmol/L (136-145)
--- NOTE | 2021-05-03 05:56 | NUR ---
SHIFT SUMMARY NO ACUTE CHANGES DURING SHIFT. PT A&OX4, [place]. SP02>92% ON RA. VSS. R ARM BOARD IN PLACE. R RADIAL SITE, NO BLEEDING. GROIN SITE UNCHANGED FROM START OF SHIFT. HAD CD MIXER LAY EYES ON IT WELL. PT DENIED PAIN. PT USED URINAL TO VOID. NO BM THIS SHIFT. PT SLEPT MOST OF NIGHT. CALL LIGHT IN REACH.
--- NOTE | 2021-05-03 12:07 | NUR ---
PHONE CALL TO DR. CHEUNG REGARDING LOW BP. DISCHARGE HELD FOR NOW, DR. CHEUNG TO MAKE ADJUSTMENTS TO BP MEDS.
--- NOTE | 2021-05-03 15:45 | NUR ---
TELEPHONE CALL TO DR. CHEUNG AFTER 500ML BOLUS BP NOW 86/58. VERBAL ORDER GIVEN FOR 100ML/HR NS, 1L TOTAL.
--- NOTE | 2021-05-03 17:53 | NUR ---
SHIFT SUMMARY; ASSUMED CARE AT 0600. A/A/OX4 DURING SHIFT. TEGADERM AND ARM BOARD IN PLACE AT RIGHT RADIAL SITE, NO BLEEDING, SWELLING OR BRUISING TO AREA. RENETTA DRESSING IN PLACE TO RIGHT GROIN. NO BLEEDING OR SWELLING. BRUISING TO AREA REMAININED UNCHANGED FROM START OF SHIFT. SEE PREVIOUS NOTES REGARDING SOFT BLOOD PRESSURE. 500ML NS BOLUS GIVEN FOLLOWED BY NS AT 100ML/HR X1 BAG, INFUSING AT SHIFT CHANGE. PLEASANT AND COOPERATIVE WITH CARE, DENIES SOB OR CHEST PAIN. WILL CONTINUE TO MONITOR AND TREAT UNTIL CHANGE OF SHIFT.
[2021-05-04 03:58] LABS: BASOPHILS ABSOLUTE AUTO 0.03 K/mm3 (0.00-0.23); BASOPHILS PERCENT AUTO 0 % (0-2); EOSINOPHILS ABSOLUTE AUTO 0.18 K/mm3 (0.00-0.68); EOSINOPHILS PERCENT AUTO 3 % (0-6); Hematocrit 33.3 % (37.0-53.0); IMMATURE GRAN ABSOLUTE AUTO 0.02 K/mm3 (0.00-0.10); IMMATURE GRAN PERCENT AUTO 0 % (0-1); LYMPHOCYTES PERCENT AUTO 16 % (21-46); MONOCYTES ABSOLUTE AUTO 0.97 K/mm3 (0.16-1.47); MONOCYTES PERCENT AUTO 14 % (4-13); Mean Corpuscular HGB 27.8 pg (26.0-34.0); Mean Corpuscular Volume 84 fL (80-100); Mean Platelet Volume 9.2 fL (9.1-12.4); NEUTROPHILS ABSOLUTE AUTO 4.47 K/mm3 (1.96-9.15); NEUTROPHILS PERCENT AUTO 66 % (41-73); Platelet Count 217 K/mm3 (150-400); RDW Coefficient Variation 13.6 % (11.7-14.2); RDW Standard Deviation 42.1 fL (35.1-46.3); Red Blood Cell Count 3.95 M/mm3 (4.30-5.90); White Blood Cell Count 6.77 K/mm3 (4.00-11.30)
[2021-05-04 04:15] LABS: Anion Gap 5 mmol/L (6-16); Blood Urea Nitrogen 27 mg/dL (8-24); Bun/Creatinine Ratio 38.3 (12.0-20.0); CO2, Blood 25 mmol/L (21-32); Calcium, Blood 7.9 mg/dL (8.5-10.1); Chloride, Blood 113 mmol/L (98-108); Creatinine, Blood 0.71 mg/dL (0.60-1.20); Glomerular Filtration Rate >60 (60-); Glucose, Blood 111 mg/dL (70-99); Potassium, Blood 3.8 mmol/L (3.5-5.5); Sodium, Blood 143 mmol/L (136-145)
--- NOTE | 2021-05-04 06:11 | NUR ---
SHIFT SUMMARY PATIENT A/Ox4. VSS WITH SOFT BPs AT TIMES. REMAINS ON RA WITH O2 SATS >90%. PATIENT STATED THAT HIS CHEST PAIN HAS GREATLY DECREASED SINCE ADMISSION. RIGHT RADIAL SITE DRESSING REMAINS C/D/I WITH ARM BOARD IN PLACE. RIGHT GROIN SITE DRESSING HAS MINIMAL DRAINAGE, OTHERWISE C/D/I. NO CHANGE IN BRUISE ON RIGHT GROIN AREA. USING URINAL AT BEDSIDE WITH AUO. ABLE TO MAKE NEEDS KNOWN TO STAFF. NO OTHER SIGNIFICANT CHANGES THIS SHIFT, WILL REPORT TO DAY SHIFT RN.
[2021-05-04] MEDS ORDERED: AQUORAL10 ML PO (10:12)
[2021-05-04] MEDS ORDERED: FLUTICASONE-SA1 EAC1 INH (10:27)
[2021-05-04] MEDS ORDERED: METO25ER PO (10:28)
--- NOTE | 2021-05-04 11:12 | NUR ---
UPDATE DC INSTRUCTIONS PROVIDED TO PT. PT EDUCATED ON MEDICATIONS CHANGES. ALL QUESTIONS ANSWERED. PT AWAITING RIDE AND WILL BE TAKEN OUT BY WC
== END 2021-05-04 13:06 | disposition home or self-care (01) ==
LOC: ER 15:44 → MEDS 15:45 → PCU 05-02 13:45
PROVIDERS: Emergency Medicine; Internal Medicine; Pharmacist; ADMIT Internal Medicine
DX: I21.4 Non-ST elevation (NSTEMI) myocardial infarction (principal); J44.9 Chronic obstructive pulmonary disease, unspecified; I25.10 Atherosclerotic heart disease of native coronary artery without angina pectoris; I50.32 Chronic diastolic (congestive) heart failure; I95.9 Hypotension, unspecified; E03.9 Hypothyroidism, unspecified; I48.92 Unspecified atrial flutter; K21.9 Gastro-esophageal reflux disease without esophagitis; E78.5 Hyperlipidemia, unspecified; B18.2 Chronic viral hepatitis C; Z95.5 Presence of coronary angioplasty implant and graft; Z87.891 Personal history of nicotine dependence; Z79.01 Long term (current) use of anticoagulants; Z79.82 Long term (current) use of aspirin
CPT/HCPCS: 36415; 71045; 76937; 80048; 80053; 80061; 83036; 83880; 84443; 84484; 85025; 85347; 85520; 85610; 85730; 93005; 93010; 93306; 93454; 93571; 94640; 94660; 94760; 94762; 96374; 96375; 96376; 99152; 99153; 99285-25; A9270; C1769; C1887; C1894; C9113; G0378; J1644; J2250; J2405; J3010; J7030; J7050; Q9967

== ENCOUNTER 2021-08-12 22:54 | Inpatient (IN) | payer OTHER ==
[~2021-08-12] VITALS: Ht 175.3 cm; Wt 57.9 kg
[~2021-08-12 22:54] MED LIST changes: +AMLO5 PO; +AQUORAL10 ML PO; +FLUTICASONE-SA1 EAC1 INH; +ISOSORBIDE MONO60 MG PO; +SODIUM FLUORID100 M2 DT; +TIOT18 INH
[2021-08-12 23:31] LABS: BASOPHILS ABSOLUTE AUTO 0.07 K/mm3 (0.00-0.23); BASOPHILS PERCENT AUTO 1 % (0-2); EOSINOPHILS ABSOLUTE AUTO 0.37 K/mm3 (0.00-0.68); EOSINOPHILS PERCENT AUTO 4 % (0-6); Hematocrit 42.2 % (37.0-53.0); Hemoglobin 13.8 g/dL (13.5-17.5); IMMATURE GRAN ABSOLUTE AUTO 0.03 K/mm3 (0.00-0.10); IMMATURE GRAN PERCENT AUTO 0 % (0-1); LYMPHOCYTES ABSOLUTE AUTO 3.75 K/mm3 (0.84-5.20); LYMPHOCYTES PERCENT AUTO 36 % (21-46); MONOCYTES ABSOLUTE AUTO 1.12 K/mm3 (0.16-1.47); MONOCYTES PERCENT AUTO 11 % (4-13); Mean Corpuscular HGB Conc 32.7 g/dL (31.5-36.5); Mean Corpuscular Volume 82 fL (80-100); Mean Platelet Volume 9.3 fL (9.1-12.4); NEUTROPHILS ABSOLUTE AUTO 5.02 K/mm3 (1.96-9.15); NEUTROPHILS PERCENT AUTO 48 % (41-73); Platelet Count 317 K/mm3 (150-400); RDW Coefficient Variation 14.1 % (11.7-14.2); RDW Standard Deviation 41.9 fL (35.1-46.3); Red Blood Cell Count 5.12 M/mm3 (4.30-5.90); White Blood Cell Count 10.36 K/mm3 (4.00-11.30)
[2021-08-12 23:51] LABS: Albumin, Blood 3.8 g/dL (3.4-5.0); Albumin/Globulin Ratio 1.2 (0.8-1.8); Bilirubin, Total 0.6 mg/dL (0.1-1.0); Bun/Creatinine Ratio 18.3 (12.0-20.0); Calcium, Blood 8.8 mg/dL (8.5-10.1); Creatinine, Blood 0.82 mg/dL (0.60-1.20); Globulin, Blood 3.3 g/dL (2.2-4.0); Magnesium, Blood 1.9 mg/dL (1.6-2.4); Potassium, Blood 3.1 mmol/L (3.5-5.5); Total Protein, Blood 7.1 g/dL (6.4-8.2)
[2021-08-13 01:05] LABS: Influenza A, PCR NEGATIVE (NEGATIVE); Influenza B, PCR NEGATIVE (NEGATIVE); Resp Syncytial Virus, PCR NEGATIVE (NEGATIVE); SARS-Cov-2 (COVID-19) PCR, MMC NEGATIVE (NEGATIVE)
--- NOTE | 2021-08-13 02:30 | NUR ---
PT ARRIVES TO ICU 5 VIA GURNEY FROM ER WITH RT AND RN IN ATTENDANCE, PT IS NOTED ON BIPAP ON ARRIVAL 12/6 FIO2 25% SATS 98-99% AND PT STATES THAT BREATHING FEELS MUCH IMPROVED. DURING ADMIT ASSESSMENT BIPAP IS PLACED IN STANDBY AND PT TRANSITIONED TO ROOM AIR, SATS ARE NOTED TO MAINTAIN MID 90S, RESP RATE MAINTAINS TEENS, PT REPORTS THAT BREATHING CONTINUES TO FEEL MUCH IMPROVED AND ALTHOUGH NOT QUITE TO BASELINE, HE FEELS THAT HE IS NEARLY TO BASELINE. HE IS SPEAKING IN FULL SENTENCES WITHOUT VISIBLE INCREASED WORK OF BREATHING NOTED AND SATS MAINTAIN, PT IS NOTED TO BE QUITE CONVERSATIONAL DURING ADMIT ASSESSMENTS. HRR, SINUS ON MONITOR, RATE LOW 100-110S, DIASTOLIC PRESSURE IS NOTED HYPERTENSIVE ON ARRIVAL, PT HAS HX OF CHF, HAS VOIDED 275 ML SINCE ARRIVAL TO UNIT, THIS IS DISCUSSED WITH DR LAYTON THERE IS ORDERS FROM ER FOR 1 LITER NS BOLUS, NS BOLUS HELD PER DR LAYTON.
[2021-08-13] MEDS ORDERED: SYMBICORT 160-4.6 GM INH (03:22)
[2021-08-13] MEDS ORDERED: ALBU90OI INH (03:25)
--- NOTE | 2021-08-13 06:25 | NUR ---
PT REMAINS ON ROOM AIR, STATES THAT HIS BREATHING IS FEELING "PRETTY GOOD" SATS MAINTAINING MID 90S, RESP RATE MID TO LOW TEENS WITH THE EXCEPTION OF PERIODS IN WHICH PT IS DOING BREATHING EXERCISES AND WHICH TIME HE TIMES RESPIRATIONS TO BE 7-8/MIN. SPOUSE KIA CALLED TO CHECK ON PT AND PT UPDATE PROVIDED. VITALS HAVE MAINTAINED STABLE SINCE ARRIVAL. LUNGS CONT DIM BUT CLEAR THROUGHOUT.
[2021-08-13 07:29] LABS: BASOPHILS ABSOLUTE AUTO 0.01 K/mm3 (0.00-0.23); BASOPHILS PERCENT AUTO 0 % (0-2); EOSINOPHILS PERCENT AUTO 0 % (0-6); Hemoglobin 12.4 g/dL (13.5-17.5); IMMATURE GRAN ABSOLUTE AUTO 0.02 K/mm3 (0.00-0.10); IMMATURE GRAN PERCENT AUTO 0 % (0-1); LYMPHOCYTES ABSOLUTE AUTO 0.35 K/mm3 (0.84-5.20); LYMPHOCYTES PERCENT AUTO 6 % (21-46); MONOCYTES ABSOLUTE AUTO 0.09 K/mm3 (0.16-1.47); MONOCYTES PERCENT AUTO 2 % (4-13); Mean Corpuscular HGB 26.2 pg (26.0-34.0); Mean Corpuscular HGB Conc 31.8 g/dL (31.5-36.5); Mean Corpuscular Volume 82 fL (80-100); Mean Platelet Volume 9.7 fL (9.1-12.4); NEUTROPHILS ABSOLUTE AUTO 5.22 K/mm3 (1.96-9.15); NEUTROPHILS PERCENT AUTO 92 % (41-73); Platelet Count 254 K/mm3 (150-400); RDW Coefficient Variation 14.1 % (11.7-14.2); RDW Standard Deviation 41.9 fL (35.1-46.3); Red Blood Cell Count 4.74 M/mm3 (4.30-5.90); White Blood Cell Count 5.69 K/mm3 (4.00-11.30)
[2021-08-13 07:54] LABS: Albumin, Blood 3.4 g/dL (3.4-5.0); Bilirubin, Total 0.5 mg/dL (0.1-1.0); Calcium, Blood 8.8 mg/dL (8.5-10.1); Creatinine, Blood 0.68 mg/dL (0.60-1.20); Globulin, Blood 3.3 g/dL (2.2-4.0); Potassium, Blood 3.9 mmol/L (3.5-5.5); Total Protein, Blood 6.7 g/dL (6.4-8.2)
[2021-08-13 08:02] LABS: CPK Creatine Kinase 127 U/L (39-308)
--- NOTE | 2021-08-13 09:50 | NUR ---
ASSUMED CARE @ 0700 PT IS A&O X4, PLEASANT AND COOPERATIVE. PT IS ON RA AT THIS TIME, RESP WNL, LUNG SOUNDS DIMINISHED, TIGHT. PT DENIES SOB/CP, STATES HE IS "FEELING BETTER THAN LAST NIGHT". VSS, KCL INFUSING WITH NO PROBLEMS, NO REQUESTS AT THIS TIME, CALL LIGHT IN REACH.
[2021-08-13 15:21] LABS: CPK Creatine Kinase 155 U/L (39-308)
--- NOTE | 2021-08-13 17:05 | NUR ---
SHIFT SUMMARY PT HAS REMAINED A&O X4, NO CP/PRESSURE. VSS, ON RA. PT WAS ABLE TO SHOWER TODAY VIA SHOWER CHAIR, HE WAS ABLE TO TOLERATE THIS WNL, BED LINEN CHANGED. PT HAS BEEN CHANGED TO PCU STATUS THIS AFTERNOON. PT HAD A CRITICAL F/U TROPONIN OF 447 THAT WAS REPORTED TO THE HOSPITALIST, NO NEW ORDERS WERE GIVEN, PT WILL BE MEDICALLY MANAGED AT THIS TIME PER MD. PT IS RESTING QUIETLY IN BED AT THIS TIME, RESP UNLABORED, ON RA, LUNG SOUND DIMINISHED THROUGHOUT. WCTM & REPORT TO ANDREA RN.
--- NOTE | 2021-08-13 20:00 | NUR ---
ASSUMED CARE OF PT AT 1915. REPORT RECEIVED. PT PRESENTS IN BED SLEEPING. EASILY AWAKENS FOR ASSESSMENT. STATES HE IS FEELING SOMEWHAT BETTER. ALERT AND ORIENTED. PLEASANT AND COOPERATIVE WITH CARE AND ASSESSMENT. ON ROOM AIR MAINTAINING SATURATIONS > 90 PERCENT. WILL REVIEW CHART AND PLAN OF CARE FOR THIS PT.
--- NOTE | 2021-08-14 02:37 | NUR ---
PT ABLE TO MOVE HIMSELF ABOUT IN BED ON HIS OWN. REPOSITIONS HIMSELF. NO COMPLAINTS OF DYSPNEA OR CHEST PAIN OR PRESSURE. WILL CONTINUE TO MONITOR.
[2021-08-14 04:22] LABS: BASOPHILS ABSOLUTE AUTO 0.01 K/mm3 (0.00-0.23); BASOPHILS PERCENT AUTO 0 % (0-2); EOSINOPHILS PERCENT AUTO 0 % (0-6); Hematocrit 37.2 % (37.0-53.0); Hemoglobin 12.1 g/dL (13.5-17.5); IMMATURE GRAN ABSOLUTE AUTO 0.05 K/mm3 (0.00-0.10); IMMATURE GRAN PERCENT AUTO 0 % (0-1); LYMPHOCYTES PERCENT AUTO 4 % (21-46); MONOCYTES ABSOLUTE AUTO 0.37 K/mm3 (0.16-1.47); MONOCYTES PERCENT AUTO 3 % (4-13); Mean Corpuscular HGB 26.8 pg (26.0-34.0); Mean Corpuscular HGB Conc 32.5 g/dL (31.5-36.5); Mean Corpuscular Volume 82 fL (80-100); Mean Platelet Volume 9.6 fL (9.1-12.4); NEUTROPHILS ABSOLUTE AUTO 10.31 K/mm3 (1.96-9.15); NEUTROPHILS PERCENT AUTO 93 % (41-73); Platelet Count 246 K/mm3 (150-400); RDW Coefficient Variation 14.6 % (11.7-14.2); RDW Standard Deviation 42.5 fL (35.1-46.3); Red Blood Cell Count 4.52 M/mm3 (4.30-5.90); White Blood Cell Count 11.14 K/mm3 (4.00-11.30)
[2021-08-14 04:45] LABS: Albumin, Blood 3.3 g/dL (3.4-5.0); Anion Gap 8 mmol/L (6-16); Blood Urea Nitrogen 25 mg/dL (8-24); Bun/Creatinine Ratio 36.8 (12.0-20.0); CO2, Blood 24 mmol/L (21-32); Calcium, Blood 9.1 mg/dL (8.5-10.1); Chloride, Blood 108 mmol/L (98-108); Creatinine, Blood 0.68 mg/dL (0.60-1.20); Glomerular Filtration Rate 99 (60-); Glucose, Blood 137 mg/dL (70-99); Phosphorus, Blood 3.5 mg/dL (2.5-4.9); Sodium, Blood 140 mmol/L (136-145)
--- NOTE | 2021-08-14 08:07 | NUR ---
AM NOTE... ASSUMED CARE OF PT AT 0700, THE PT IS A&Ox4 AND IND WITH MOST ADLs. THE PT'S VS STABLE AT THIS TIME. THE PT IS ON RA WITH O2 SATS >94% L/S CLEAR AND DIM WITH EXP WHEEZES NOTED. THE PT IS IN SR/ST IN THE 90'S-100'S NO EDEMA NOTED ON ASSESSMENT. BT PRESENT AND HYPERACTIVE, ABD IS SOFT AND NONTENDER TO PALPATION. THE PT VOIDS USING THE URINAL INDEPENDENTLY. CALL LIGHT IN REACH WILL CONTINUE TO MONITOR.
--- NOTE | 2021-08-14 18:31 | NUR ---
SHIFT SUMMARY.... NO ACUTE NEGATIVE CHANGES NOTED THIS SHIFT. THE PT'S VS HAVE BEEN STABLE. HE WORKED WITH PT/OT AND WAS UP IN THE RECLINER CHAIR FOR SEVERAL HOURS. THE PT REFUSES TO SIT UP WHILE EATING STATING "ITS BETTER FOR MY HEART." THE PT WAS EDUCATED ON THE ASPIRATION RISK OF EATING WHILE LAYING BACK THE PT VERBALIZED HIS UNDERSTANDING BUT STILL REFUSED TO SIT UP. THE PT IS EATING WELL AND PLAN IS FOR D/C HOME TOMORROW AFTER A HOME O2 EVALUATION. CALL LIGHT IN REACH WILL CONTINUE TO MONITOR UNTIL REPORT IS GIVEN TO ONCOMING RN.
--- NOTE | 2021-08-14 21:08 | NUR ---
ASSUMED CARE OF PT AT 1915. REPORT RECEIVED. WAS INFORMED THAT PT HAD SOME DIFFICULTIES PARTICIPATING IN PHYSICAL THERAPY THIS DAY. HE WOULD NOT STAY UP FOR VERY LONG BEFORE GOING RIGHT BACK TO BED. DID ENCOURAGE PT TO GET UP THIS EVENING. DID DO ORTHOSTATIC BLOOD PRESSURES. SEE VS CHARTING FOR DETAILS. PT DID HAVE ELEVATION IN HIS BLOOD PRESSURE WHEN DISCUSSING GETTING OUT OF BED. UPON EVALUATION. DID HAVE PT AMBULATE TO SINK TO BRUSH HIS TEETH AND TO DO HS CARE. PT BECOMES VERY PANICKED WHILE UP AND HURRIED TO BED. DEMONSTRATING A HIGH ANXIETY AFFECT ABOUT BEING UP. PT TEACHING AND DISCUSSION ABOUT WHAT WAS OBSERVED. PT DOES AGREE THAT HE BECOMES ABNORMALLY ANXIOUS WHILE OUT OF BED. HAVE ENCOURAGED PT AND DISCUSSED WITH HIM HIS FEARS AND FEELINGS. VALIDATED THOSE FEELINGS APPROPRIATE. WILL NOTIFY ENDS BREAKAGE CLERK WITH FINDINGS AND TO CHECK AVAILABILITY FOR HELP WITH THIS ANXIETY. WILL REVIEW CHART AND PLAN OF CARE FOR THIS PT.
--- NOTE | 2021-08-14 22:15 | NUR ---
PT STATES THAT HE FEELS IF ANXIOUSNESS HAS IMPROVED.
--- NOTE | 2021-08-15 05:23 | NUR ---
PT HAS BEEN ABLE TO REST THIS NIGHT. HAS NOT BEEN OUT OF BED SINCE EARLIER IN EVENING. DENIES DYSPNEA OR CHEST PAIN/PRESSURE. MOVES ABOUT BED ON HIS OWN. DOES REPOSITION HIMSELF. WILL CONTINUE TO MONITOR PT, AND WILL REPORT OFF TO ONCOMING RN.
--- NOTE | 2021-08-15 12:37 | NUR ---
REASSESSMENT PT HAS BEEN UP TO THE SHOWER THIS MORNING. HE WAS ABLE TO WALK THERE DURING HIS HOME O2 EVAL, BUT REQUIRED ONE BREAK WHEN HE GOT VERY ANXIOUS AND TOOK ABOUT 5 MINTUES TO RECOVER. LUNGS ARE CLEAR AND SPO2 ABOVE 90 ON RA AT REST, BUT WITH ACTIVITY RT HAS RECOMMENDED 3L/NC. PT HAS BEEN SITTING UP IN THE CHAIR FOR ALMOST 2 HOURS SINCE HIS SHOWER. CARE MANAGEMENT WORKING ON SETTING UP HOME HEALTH AND HOME OXYGEN. SPOKE WITH PT'S TO LET HER KNOW THE PLAN IS FOR DISHCARGE TODAY AND SHE SAID SHE IS AVAILABLE ALL AFTERNOON TO BUSINESS INFORMATION CONSULTANT PT. NEW MED LIST FAXED TO [facility].
[2021-08-15] MEDS ORDERED: Prednisone10 MG PO (16:19)
--- NOTE | 2021-08-15 16:42 | NUR ---
DISCHARGE PT DISCHARGED VIA WC WITH HIS . DISCHARGE INSTRUCTIONS GIVEN TO PT AND [facility] REGARDING FOLLOW UP APPOINTMENTS AND NEW MEDICATIONS. [facility] WITH [facility] AND [facility] SENT REQUESTING FOLLOW UP APPOINTMENT FOR PT. PULMONOLOGY OFFICE SAID PT HAS AN APPOINTMENT AT THE END OF AUGUST, BUT PUT HIM ON THE WAIT LIST IN CASE THEY CAN GET HIM IN SOONER. CARDIOLOGY OFFICE PLANS TO CALL PT WITH APPOINTMENT AFTER MOVING THINGS AROUND TO FIT HIM IN WELL. PT ABLE TO DRESS WITHOUT TOO MUCH RESPIRATORY DISTRESS. ENCOURAGED PT TO PUT OXYGEN ON BUT HE DIDN'T WANT TO UNTIL AFTER HE WAS DRESSED. [facility] DELIVERED PORTABLE OXYGEN. ALL BELONGINGS SENT HOME WITH PT.
== END 2021-08-15 17:01 | disposition home health service (06) | DRG 871 ==
LOC: ER 22:54 → ICUW 23:53 → ICUE 23:53
PROVIDERS: Family Medicine; Student in an Organized Health Care Education/Training Program; ADMIT Internal Medicine
PROC: 3E03329 Introduction of Other Anti-infective into Peripheral Vein, Percutaneous Approach (ICD-10-PCS; principal; 2021-08-12)
PROC: 5A09357 Assistance with Respiratory Ventilation, Less than 24 Consecutive Hours, Continuous Positive Airway Pressure (ICD-10-PCS; 2021-08-12)
DX: A41.9 Sepsis, unspecified organism (principal); J18.9 Pneumonia, unspecified organism; J96.01 Acute respiratory failure with hypoxia; E87.2 Acidosis; I50.32 Chronic diastolic (congestive) heart failure; I24.8 Other forms of acute ischemic heart disease; Z20.822 Contact with and (suspected) exposure to COVID-19; J43.9 Emphysema, unspecified; E87.6 Hypokalemia; D64.9 Anemia, unspecified; I25.10 Atherosclerotic heart disease of native coronary artery without angina pectoris; E03.9 Hypothyroidism, unspecified; I25.2 Old myocardial infarction; Z90.49 Acquired absence of other specified parts of digestive tract; Z88.8 Allergy status to other drugs, medicaments and biological substances; Z79.02 Long term (current) use of antithrombotics/antiplatelets; Z79.82 Long term (current) use of aspirin; Z79.899 Other long term (current) drug therapy
CPT/HCPCS: 0241U; 36415; 71045; 71260; 80053; 80069; 82550; 82947; 83605; 83735; 83880; 84484; 85025; 85379; 87040; 93005; 93010; 94640; 94644; 94660; 94664; 94760; 94761; 96374; 96375; 97162; 97166; 97530; 97535; 99285-25; A9270; C8929; J0456; J0696; J1650; J2930; J3475; J3480; J7040; J7050; Q9957; Q9967

== ENCOUNTER 2022-02-04 01:03 | Inpatient (IN) | payer OTHER ==
[~2022-02-04] VITALS: Ht 177.8 cm; Wt 54.6 kg
[~2022-02-04 01:03] MED LIST changes: -PANTOPRAZOLE SO20 MG PO; +SYMBICORT 160-4.6 GM INH
[2022-02-04 01:41] LABS: BASOPHILS ABSOLUTE AUTO 0.05 K/mm3 (0.00-0.23); BASOPHILS PERCENT AUTO 1 % (0-2); EOSINOPHILS ABSOLUTE AUTO 0.33 K/mm3 (0.00-0.68); EOSINOPHILS PERCENT AUTO 3 % (0-6); Hematocrit 43.6 % (37.0-53.0); Hemoglobin 14.9 g/dL (13.5-17.5); IMMATURE GRAN ABSOLUTE AUTO 0.03 K/mm3 (0.00-0.10); IMMATURE GRAN PERCENT AUTO 0 % (0-1); LYMPHOCYTES ABSOLUTE AUTO 0.93 K/mm3 (0.84-5.20); LYMPHOCYTES PERCENT AUTO 10 % (21-46); MONOCYTES ABSOLUTE AUTO 0.81 K/mm3 (0.16-1.47); MONOCYTES PERCENT AUTO 8 % (4-13); Mean Corpuscular HGB 28.8 pg (26.0-34.0); Mean Corpuscular HGB Conc 34.2 g/dL (31.5-36.5); Mean Corpuscular Volume 84 fL (80-100); Mean Platelet Volume 8.6 fL (9.1-12.4); NEUTROPHILS ABSOLUTE AUTO 7.67 K/mm3 (1.96-9.15); NEUTROPHILS PERCENT AUTO 78 % (41-73); Platelet Count 273 K/mm3 (150-400); RDW Standard Deviation 39.9 fL (35.1-46.3); Red Blood Cell Count 5.18 M/mm3 (4.30-5.90); White Blood Cell Count 9.82 K/mm3 (4.00-11.30)
[2022-02-04 01:55] LABS: Albumin/Globulin Ratio 0.8 (0.8-1.8); Bilirubin, Total 0.8 mg/dL (0.1-1.0); Bun/Creatinine Ratio 24.5 (12.0-20.0); Calcium, Blood 8.6 mg/dL (8.5-10.1); Creatinine, Blood 0.65 mg/dL (0.60-1.20); Globulin, Blood 3.8 g/dL (2.2-4.0); Potassium, Blood 3.3 mmol/L (3.5-5.5); Total Protein, Blood 6.8 g/dL (6.4-8.2)
[2022-02-04 05:28] LABS: Influenza A, PCR NEGATIVE (NEGATIVE); Influenza B, PCR NEGATIVE (NEGATIVE); Resp Syncytial Virus, PCR NEGATIVE (NEGATIVE); SARS-Cov-2 (COVID-19) PCR, MMC NEGATIVE (NEGATIVE)
--- NOTE | 2022-02-04 15:26 | NUR ---
ADMIT NOTE PT ARRIVED TO PCU FROM ED VIA ED STRETCHER AT APPROX 0800. PT SCOOTED SELF FROM ED STRETCHER TO PCU BED. PT ALERT, ORIENTED. SP02>90% ON 2L NC. DYSPNEA W/ EXERTION/ANY ACTIVITY. STATES SOB TODAY THAT "USUALLY GOES AWAY BUT DIDN'T. PREFERS TO LAY FLAT. TELEMETRY SHOWS NSR, HR 70'S PER CELLAR PACKER. PT MEDICAL STATUS. USES URINAL TO VOID, PT STATES, "PEEING TAKES PATIENCE FOR ME". NO BM YET THIS SHIFT, PT STATES ONE BM YESTERDAY. PT ORIENTED TO ROOM, CALL LIGHT. CALL LIGHT IN REACH.
--- NOTE | 2022-02-05 07:28 | NUR ---
NO ACUTE EVENTS OVERNIGHT LAST NIGHT. PATIENT MAINTAINED HIS OXYGEN SATURATIONS AT GREATER THAN 90% ON ROOM AIR, WITH THE EXCEPTION OF SOME APNEIC SPELLS WHILE SLEEPING. MR. CASTRO REPORTS THAT HE DOES HAVE YANNI AND IS A CO2 RETAINER BUT HE IS NOT COMPLIANT WITH CONSISTENT USE OF HIS CPAP. EDUCATION PROVIDED REGARDING THE BENEFIT OF THE CPAP. PATIENT ALSO REPORTS THAT HE USES A WHEELCHAIR TO MOVE AROUND, TAKES FEW STEPS POSSIBLE AND SPENDS MOST OF THE DAY AND NIGHT LYING DOWN. HE STATES THAT HE HAS TROUBLE WITH SHORTNESS OF BREATH IF HE EXERTS HIMSELF BY SITTING UP FOR TOO LONG. EDUCATION PROVIDED TO PATIENT REGARDING THE NEGATIVE EFFECTS OF REMAINING IN BED ALL DAY AND HIS INCREASED RISK FOR RECURRENT PNEUMONIA. OFFERED SUGGESTIONS FOR SLOWLY INCREASING HIS ACTIVITY, SITTING UP IN A RECLINER VS LYING DOWN ALL DAY.
--- NOTE | 2022-02-05 17:37 | NUR ---
SHIFT SUMMARY PATIENT IS A RECENT PCU TRANSFER. PATIENT HAS HAD NO ACUTE EVENTS SINCE ARRIVAL TO MEDICAL FLOOR. EVENING MEDICATIONS PASSED. PATIENT HAS NO COMPLAINTS SINCE ARRIVAL. BED IN LOCKED AND LOWEST POSITION. CALL LIGHT IN PLACE. WILL MONITOR UNTIL SHIFT CHANGE.
--- NOTE | 2022-02-06 05:15 | NUR ---
QA CONSULTANT SUMMARY NO ACUTE EVENTS. A/OX4. PLEASANT AND COOPERATIVE. PT ABLE T/MAKE NEEDS KNOWN AND CALL APPROPRIATELY. PT DENIES SOB. SAT >90% ON ROOM AIR. CALL LIGHT IN REACH.
--- NOTE | 2022-02-06 17:18 | NUR ---
PT IS A/OX4, PLEASANT AND COOPERATIVE. THE PT IS UP WITH MINIMAL ASSIST, HOWEVER, THE PT BECOMES ANXIOUS AND SOB WITH ACTIVITY. O2 WAS PLACED ON THE PT THIS AFTERNOON FOR HIS COMFORT. PT WAS GIVEN VISTIRIL FOR ANXIETY AND BREATHING TX'S NEEDED. PT DENIED ANY C/P OR ANY OTHER PAIN TODAY. CALL LIGHT IN REACH. WILL CONTINUE TO MONITOR AND ASSESS FOR CHANGES
[2022-02-07 05:59] LABS: BASOPHILS PERCENT AUTO 0 % (0-2); EOSINOPHILS PERCENT AUTO 0 % (0-6); Hematocrit 37.7 % (37.0-53.0); Hemoglobin 12.6 g/dL (13.5-17.5); IMMATURE GRAN ABSOLUTE AUTO 0.06 K/mm3 (0.00-0.10); IMMATURE GRAN PERCENT AUTO 1 % (0-1); LYMPHOCYTES ABSOLUTE AUTO 0.31 K/mm3 (0.84-5.20); LYMPHOCYTES PERCENT AUTO 3 % (21-46); MONOCYTES ABSOLUTE AUTO 0.49 K/mm3 (0.16-1.47); MONOCYTES PERCENT AUTO 5 % (4-13); Mean Corpuscular HGB 28.6 pg (26.0-34.0); Mean Corpuscular HGB Conc 33.4 g/dL (31.5-36.5); Mean Corpuscular Volume 86 fL (80-100); Mean Platelet Volume 8.9 fL (9.1-12.4); NEUTROPHILS PERCENT AUTO 92 % (41-73); Platelet Count 294 K/mm3 (150-400); RDW Coefficient Variation 13.6 % (11.7-14.2); RDW Standard Deviation 42.3 fL (35.1-46.3); Red Blood Cell Count 4.41 M/mm3 (4.30-5.90); White Blood Cell Count 10.36 K/mm3 (4.00-11.30)
--- NOTE | 2022-02-07 06:19 | NUR ---
FABRIC STRETCHER SUMMARY NO ACUTE EVENTS. PT A/OX4. PT NPO SINCE MIDNIGHT; NO CAFFIENE F/STRESS TEST PREP. PT DENIES SOB T/O THE SHIFT. PERIODS OF WAKEFULLNESS T/O THE NIGHT. ABLE T/MAKE NEEDS KNOWN. CALL LIGHT IN REACH.
[2022-02-07 06:28] LABS: Bun/Creatinine Ratio 46.8 (12.0-20.0); Calcium, Blood 8.5 mg/dL (8.5-10.1); Creatinine, Blood 0.64 mg/dL (0.60-1.20); Magnesium, Blood 2.2 mg/dL (1.6-2.4); Potassium, Blood 4.1 mmol/L (3.5-5.5)
--- NOTE | 2022-02-07 19:49 | NUR ---
PT IS A/OX4, PLEASANT AND COOPERATIVE.PT IS ANXIOUS. PT WAS MEDICATED X1 TODAY FOR ANXIETY. PT PT HAD THE FIRST PART OF HIS ORDERED STRESS TEST TODAY. 2ND PART SCHEDULED FOR EARLY AM. PT APPEARS TO BE BREATHING SHALLOW, HOWEVER O2 SAT;S ARE > 92% ON RA. PT DENIED ANY PAIN T/O THE DAY. CALL LIGHT IN REACH. VSS
--- NOTE | 2022-02-08 04:32 | NUR ---
SHIFT SUMMARY NO ACUTE CHANGES TO REPORT OVERNIGHT, PT HAS RESTED T/O SHIFT. HE REPORTS FEELING BETTER AND STATES THAT HIS APPETITE IS RETURNING. PT IS BREATHING EASILY ON RA AND IS MAINTAINING SATS. IV SOLUMEDROL CONTINUED. VITALS ARE STABLE. PLAN IS FOR SECOND PORTION OF STRESS TODAY AND THEN DISCHARGE HOME IF THERE ARE NO ACUTE CHANGES WITH TEST. PT NPO THIS AM FOR PROCEDURE. BED IN LOWEST POSITION, CALL LIGHT WITHIN REACH.
--- NOTE | 2022-02-08 19:28 | NUR ---
PT IS A/OX4, PLEASANT AND COOPERATIVE. THE PT IS UP WITH ASSIST TO THE BSC. PT CONTINUES TO BREATH SHALLOW AND BECOMES HIGHLY ANXIOUS WITH WITH ANY ACTIVITY. THE PT'S O2 SATS >92% ON RA. THE PT'S BP WAS ELEVATED T/O THE DAY THE PT WAS MEDICATED FOR ELEVATED BP X1. THE PT WAS GIVEN ATIVAN AND VISTERIL TODAY. PT WAS TO BE DC'D TO HOME TODAY, HOWEVER HE FELT THAT HE WAS NOT ABLE TO HAVE THINGS IN PLACE AT HOME AND THAT HE JUST DID NOT FEEL WELL ENOUGH TO BE GOING HOME. DR. SANTIAGO WAS CALLED AND DISCHARGE WAS HELD. CALL LIGHT IN REACH. REPORT GIVEN TO NOC NURSE
--- NOTE | 2022-02-09 03:24 | NUR ---
Patient resting in room, prn medication given for blood pressure, no complaints of pain or discomfort.
[2022-02-09 04:58] LABS: BASOPHILS ABSOLUTE AUTO 0.02 K/mm3 (0.00-0.23); BASOPHILS PERCENT AUTO 0 % (0-2); EOSINOPHILS PERCENT AUTO 0 % (0-6); Hematocrit 43.2 % (37.0-53.0); Hemoglobin 14.4 g/dL (13.5-17.5); IMMATURE GRAN ABSOLUTE AUTO 0.14 K/mm3 (0.00-0.10); IMMATURE GRAN PERCENT AUTO 2 % (0-1); LYMPHOCYTES ABSOLUTE AUTO 0.25 K/mm3 (0.84-5.20); LYMPHOCYTES PERCENT AUTO 3 % (21-46); MONOCYTES ABSOLUTE AUTO 0.46 K/mm3 (0.16-1.47); MONOCYTES PERCENT AUTO 5 % (4-13); Mean Corpuscular HGB 28.5 pg (26.0-34.0); Mean Corpuscular HGB Conc 33.3 g/dL (31.5-36.5); Mean Corpuscular Volume 85 fL (80-100); Mean Platelet Volume 8.8 fL (9.1-12.4); NEUTROPHILS ABSOLUTE AUTO 7.68 K/mm3 (1.96-9.15); NEUTROPHILS PERCENT AUTO 90 % (41-73); Platelet Count 317 K/mm3 (150-400); RDW Coefficient Variation 13.7 % (11.7-14.2); RDW Standard Deviation 42.7 fL (35.1-46.3); Red Blood Cell Count 5.06 M/mm3 (4.30-5.90); White Blood Cell Count 8.55 K/mm3 (4.00-11.30)
[2022-02-09 05:15] LABS: Bun/Creatinine Ratio 45.7 (12.0-20.0); Calcium, Blood 8.4 mg/dL (8.5-10.1); Creatinine, Blood 0.55 mg/dL (0.60-1.20); Potassium, Blood 3.9 mmol/L (3.5-5.5)
--- NOTE | 2022-02-09 17:19 | NUR ---
PT IS A/OX4, PLEASANT AND COOPERATIVE. THE PT IS UP WITH MODERATE ASSIST. THE PT CONTINUED TO HAVE ANXIETY T/O THE DAY.PT FELT DIZZINESS AND CONTINUES TO REPORT FEELING SOB. PT IS MAINTAING O2 SAT'S > 92%, BREATHS ARE SHALLOW. PT HAS A PRODUCTIVE COUGH. CALL LIGHT IN REACH. WILL CONTINUE TO MONITOR AND ASSESS FOR CHANGES
--- NOTE | 2022-02-10 03:27 | NUR ---
Patient resting in bed, no complaints of pain or discomfort.
[2022-02-10 05:47] LABS: Hematocrit 45.1 % (37.0-53.0); Mean Corpuscular HGB 28.2 pg (26.0-34.0); Mean Corpuscular HGB Conc 33.3 g/dL (31.5-36.5); Mean Corpuscular Volume 85 fL (80-100); Mean Platelet Volume 8.5 fL (9.1-12.4); Platelet Count 325 K/mm3 (150-400); RDW Coefficient Variation 13.8 % (11.7-14.2); RDW Standard Deviation 42.9 fL (35.1-46.3); Red Blood Cell Count 5.32 M/mm3 (4.30-5.90); White Blood Cell Count 10.52 K/mm3 (4.00-11.30)
[2022-02-10 06:15] LABS: Albumin, Blood 2.8 g/dL (3.4-5.0); Albumin/Globulin Ratio 0.9 (0.8-1.8); Bilirubin, Total 0.7 mg/dL (0.1-1.0); Bun/Creatinine Ratio 41.5 (12.0-20.0); Calcium, Blood 8.7 mg/dL (8.5-10.1); Creatinine, Blood 0.6 mg/dL (0.60-1.20); Globulin, Blood 3.1 g/dL (2.2-4.0); Magnesium, Blood 2.5 mg/dL (1.6-2.4); Potassium, Blood 4.2 mmol/L (3.5-5.5); Total Protein, Blood 5.9 g/dL (6.4-8.2)
--- NOTE | 2022-02-10 18:40 | NUR ---
PATIENT A/OX4, CONTINUES TO BE VERY ANXIOUS BUT PLEASANT. B/P ELEVATED AND MEDICATIONS ADJUSTED TODAY. SOB AT TIMES, BUT MAINTAINING SATS ON RA. SKIN INTACT. CALLS APPROPRIATELY FOR ASSISTANCE. FALL PRECAUTIONS IN PLACE. NEEDS ENCOURAGEMENT TO BE ACTIVE, WORKING WITH PT.
--- NOTE | 2022-02-10 20:40 | NUR ---
ASSUMED PT CARE FROM RN ON DAYSHIFT. PT SITTING UP IN BED WATCHING TV. A&OX3, HAS ANXIOUS APPEARANCE, FIDGETING WITH BEDCLOTHES BUT SMILES WHEN SPOKEN TO. DENIES ANY NAUSEA. BP LOW THIS EVEN, SEE CHART, BUT MAP > 65. DENIES ANY DIZZIENESS, LIGHTHEADEDNESS, OR CHEST PAIN. SPOKE WITH DR. SANTIAGO, INSTRUCTED TO HOLD EVENING DOSES OF BP MEDS AND MONITOR BP. PT REPORTS SOB WHEN NEEDING TO COUGH BUT NONE OTHERWISE. WILL MONITOR. CALL LIGHT IN REACH.
--- NOTE | 2022-02-10 22:54 | NUR ---
DR. SANTIAGO INFORMED THAT PT'S BP WAS STILL LOW BUT IS ASYMPTOMATIC WITH MAP FO 69. INSTRUCTED TO CONTINUE TO MONITOR.
--- NOTE | 2022-02-11 07:03 | NUR ---
SHIFT SUMMARY: PT BP IMPROVED THROUGHOUT NIGHT, SEE CHART. PT CONTINUED TO BE ASYMPTOMATIC THROUGHTOUT. PT HAS HAS NO COMPLAINTS OF SOB OR CHEST PAIN. SLEPT MAJORITY OF NIGHT. VSS. CALL LIGHT IN REACH. BED ALARM ON.
--- NOTE | 2022-02-11 18:06 | NUR ---
PATIENT A/OX4, UP WITH 1 ASSIST TODAY. REMAINS ON RA. SOB AND ANXIETY HAVE IMPROVED TODAY. TOELRATING DIET. SKIN INTACT. PATIENT NEEDS ENCOURAGEMENT TO GET OUT OF BED. VSS, B/P HAS IMPROVED. NO NEW CONCERNS THIS SHIFT.
--- NOTE | 2022-02-12 04:52 | NUR ---
SHIFT SUMMARY 71 YR M ADMITTED ON 02/04/22 FOR PNEUMONIA. FULL CODE. NO ACUTE CHANGES THIS SHIFT. PT IS PLEASANT AND COOPERATIVE WITH CARE AND DID NOT EXHIBIT ANY S/S OF ANXIOUSNESS THIS SHIFT. ALSO NO C/O PAIN THIS SHIFT. HE HAS SLEPT FOR MOST OF THE NIGHT AND CALLS APPROPRIATELY TO EXPRESS HIS NEEDS.
[2022-02-12 05:12] LABS: Hematocrit 37.3 % (37.0-53.0); Hemoglobin 12.4 g/dL (13.5-17.5); Mean Corpuscular HGB 28.6 pg (26.0-34.0); Mean Corpuscular HGB Conc 33.2 g/dL (31.5-36.5); Mean Corpuscular Volume 86 fL (80-100); Mean Platelet Volume 9.1 fL (9.1-12.4); Platelet Count 239 K/mm3 (150-400); RDW Coefficient Variation 13.6 % (11.7-14.2); Red Blood Cell Count 4.33 M/mm3 (4.30-5.90); White Blood Cell Count 7.73 K/mm3 (4.00-11.30)
[2022-02-12 05:31] LABS: Bun/Creatinine Ratio 58.4 (12.0-20.0); Calcium, Blood 7.6 mg/dL (8.5-10.1); Creatinine, Blood 0.58 mg/dL (0.60-1.20); Potassium, Blood 3.7 mmol/L (3.5-5.5)
--- NOTE | 2022-02-12 18:00 | NUR ---
DAY SHIFT SUMMARY PT ORIENTED X4. ANXIOUS WITH ACTIVITY AND SOA. VSS PER PT TREND. ABLE TO MAKE NEEDS KNOWN. PT/OT FOLLOWING PT AND PLAN TO RETURN HOME WITH IN PLACE [facility]. EXPECTED D/C TOMORROW. WILL PASS ON TO ANDREA ROD
--- NOTE | 2022-02-13 05:26 | NUR ---
SHIFT SUMMARY A&O X4. VSS. DENIES PAIN. PLEASANT AND COOPERATIVE WITH CARE. [place]. USES URINAL AT BEDSIDE. STANDBY ASSIST. SLEPT THROUGHOUT THE NIGHT. POSSIBLE DC IN AM.
[2022-02-13] MEDS ORDERED: AZIT500 PO (10:24)
[2022-02-13] MEDS ORDERED: PRED20 PO (10:26)
[2022-02-13] MEDS ORDERED: GUAI600T33 PO (10:53)
[2022-02-13] MEDS ORDERED: METO25 PO (10:54)
[2022-02-13] MEDS ORDERED: PRAZ2 PO (10:54)
[2022-02-13] MEDS ORDERED: MIRT30ST PO (10:54)
--- NOTE | 2022-02-13 18:38 | NUR ---
DISCHARGE REVIEWED WITH PT , HE VERBALIZED UNDERSTANDING MEDS AND INSTRUCT. IV PULLED INTACT. NO TELE. [facility] HERE AT 1838, PT WHEELED TO DOOR BY TRANSPORT
== END 2022-02-13 19:13 | disposition home or self-care (01) | DRG 189 ==
LOC: ER 01:03 → ERHOLD 05:09 → MEDS 05:09 → PCU 08:03 → MEDS 02-05 16:20
PROVIDERS: Internal Medicine; Student in an Organized Health Care Education/Training Program; ADMIT Family Medicine
DX: J96.01 Acute respiratory failure with hypoxia (principal); J18.9 Pneumonia, unspecified organism; I21.A1 Myocardial infarction type 2; I50.42 Chronic combined systolic (congestive) and diastolic (congestive) heart failure; I16.1 Hypertensive emergency; I11.0 Hypertensive heart disease with heart failure; F41.9 Anxiety disorder, unspecified; I25.10 Atherosclerotic heart disease of native coronary artery without angina pectoris; R79.1 Abnormal coagulation profile; E03.9 Hypothyroidism, unspecified; J43.9 Emphysema, unspecified; I27.20 Pulmonary hypertension, unspecified; E78.5 Hyperlipidemia, unspecified; B19.20 Unspecified viral hepatitis C without hepatic coma; I95.9 Hypotension, unspecified; E87.6 Hypokalemia; K21.9 Gastro-esophageal reflux disease without esophagitis; F12.10 Cannabis abuse, uncomplicated; Z20.822 Contact with and (suspected) exposure to COVID-19; Z98.890 Other specified postprocedural states; Z88.8 Allergy status to other drugs, medicaments and biological substances; Z79.51 Long term (current) use of inhaled steroids; Z79.899 Other long term (current) drug therapy; Z79.52 Long term (current) use of systemic steroids; Z79.82 Long term (current) use of aspirin; Z79.02 Long term (current) use of antithrombotics/antiplatelets; Z95.5 Presence of coronary angioplasty implant and graft; Z87.891 Personal history of nicotine dependence; Z79.811 Long term (current) use of aromatase inhibitors; I25.2 Old myocardial infarction; Z90.49 Acquired absence of other specified parts of digestive tract
CPT/HCPCS: 0241U; 36415; 71046; 71260; 78452; 80048; 80053; 83735; 83880; 84145; 84484; 85025; 85027; 85379; 93005; 93010; 93017; 93306; 94640; 94664; 94760; 94761; 94762; 96374-59; 97110; 97162; 97165; 97530; 99285-25; A9270; A9500; C9113; J0360; J0456; J0706; J1650; J2060; J2785; J2930; J7050; J7512; Q9967

== ENCOUNTER 2022-06-27 16:25 | Inpatient (IN) | payer OTHER ==
[~2022-06-27] VITALS: Ht 177.8 cm; Wt 53.6 kg
[~2022-06-27 16:25] MED LIST changes: +GUAI600T33 PO; +METO25 PO; +MIRT30ST PO; +PRAZ2 PO; +PRED20 PO
[2022-06-27 18:01] LABS: BASOPHILS ABSOLUTE AUTO 0.04 K/mm3 (0.00-0.23); BASOPHILS PERCENT AUTO 0 % (0-2); EOSINOPHILS ABSOLUTE AUTO 0.23 K/mm3 (0.00-0.68); EOSINOPHILS PERCENT AUTO 2 % (0-6); Hematocrit 34.3 % (37.0-53.0); Hemoglobin 11.3 g/dL (13.5-17.5); IMMATURE GRAN ABSOLUTE AUTO 0.04 K/mm3 (0.00-0.10); IMMATURE GRAN PERCENT AUTO 0 % (0-1); LYMPHOCYTES ABSOLUTE AUTO 0.48 K/mm3 (0.84-5.20); LYMPHOCYTES PERCENT AUTO 5 % (21-46); MONOCYTES PERCENT AUTO 12 % (4-13); Mean Corpuscular HGB 29.4 pg (26.0-34.0); Mean Corpuscular HGB Conc 32.9 g/dL (31.5-36.5); Mean Corpuscular Volume 89 fL (80-100); Mean Platelet Volume 9.1 fL (9.1-12.4); NEUTROPHILS ABSOLUTE AUTO 7.83 K/mm3 (1.96-9.15); NEUTROPHILS PERCENT AUTO 80 % (41-73); Platelet Count 199 K/mm3 (150-400); RDW Coefficient Variation 13.4 % (11.7-14.2); RDW Standard Deviation 43.2 fL (35.1-46.3); Red Blood Cell Count 3.85 M/mm3 (4.30-5.90); White Blood Cell Count 9.82 K/mm3 (4.00-11.30)
[2022-06-27 18:49] LABS: Albumin, Blood 2.7 g/dL (3.4-5.0); Bilirubin, Total 0.4 mg/dL (0.1-1.0); Bun/Creatinine Ratio 33.1 (12.0-20.0); Calcium, Blood 8.2 mg/dL (8.5-10.1); Creatinine, Blood 0.82 mg/dL (0.60-1.20); Globulin, Blood 2.8 g/dL (2.2-4.0); Potassium, Blood 3.7 mmol/L (3.5-5.5); Total Protein, Blood 5.5 g/dL (6.4-8.2)
[2022-06-27 20:14] LABS: International Normalized Ratio 1.04; Prothrombin Time Results 10.9 Sec (9.7-11.5)
[2022-06-27 22:10] VITALS: BP 103/73
[2022-06-27] MEDS ORDERED: METO50ER PO (23:15)
[2022-06-28] VITALS (17 sets, daily range): BP systolic 88–135; BP diastolic 70–97
[2022-06-28 04:50] LABS: BASOPHILS ABSOLUTE AUTO 0.05 K/mm3 (0.00-0.23); BASOPHILS PERCENT AUTO 1 % (0-2); EOSINOPHILS ABSOLUTE AUTO 0.51 K/mm3 (0.00-0.68); EOSINOPHILS PERCENT AUTO 6 % (0-6); Hematocrit 30.9 % (37.0-53.0); Hemoglobin 10.2 g/dL (13.5-17.5); IMMATURE GRAN ABSOLUTE AUTO 0.03 K/mm3 (0.00-0.10); IMMATURE GRAN PERCENT AUTO 0 % (0-1); LYMPHOCYTES ABSOLUTE AUTO 0.74 K/mm3 (0.84-5.20); LYMPHOCYTES PERCENT AUTO 9 % (21-46); MONOCYTES ABSOLUTE AUTO 1.17 K/mm3 (0.16-1.47); MONOCYTES PERCENT AUTO 14 % (4-13); Mean Corpuscular HGB 29.3 pg (26.0-34.0); Mean Corpuscular Volume 89 fL (80-100); Mean Platelet Volume 9.5 fL (9.1-12.4); NEUTROPHILS ABSOLUTE AUTO 5.87 K/mm3 (1.96-9.15); NEUTROPHILS PERCENT AUTO 70 % (41-73); Platelet Count 183 K/mm3 (150-400); RDW Coefficient Variation 13.3 % (11.7-14.2); RDW Standard Deviation 43.2 fL (35.1-46.3); Red Blood Cell Count 3.48 M/mm3 (4.30-5.90); White Blood Cell Count 8.37 K/mm3 (4.00-11.30)
[2022-06-28 05:13] LABS: Albumin, Blood 2.6 g/dL (3.4-5.0); Bilirubin, Total 0.6 mg/dL (0.1-1.0); Bun/Creatinine Ratio 38.2 (12.0-20.0); Creatinine, Blood 0.79 mg/dL (0.60-1.20); Globulin, Blood 2.6 g/dL (2.2-4.0); Potassium, Blood 3.9 mmol/L (3.5-5.5); Total Protein, Blood 5.2 g/dL (6.4-8.2)
--- NOTE | 2022-06-28 07:00 | NUR ---
SHIFT SUMMARY PATIENT ARRIVED TO PCU 3 VIA STRETCHER AT 2200. HE IS ALERT AND ORIENTED X4. REQUIRED A SLIDE TRANSFER DUE TO L FEMUR FRACTURE. SENSATION AND PULSES ARE BOTH PRESENT IN LEFT EXTREMITES, CAP REFIL <3 SECONDS. SWELLING NOTED IN L SHOULDER. PAIN WELL MANAGED WITH PRN MEDICATIONS PER EMAR. LUNG SOUNDS CLEAR. VITAL SIGNS STABLE. NO ACUTE ISSUES NOTED OVERNIGHT. WILL CONTINUE TO MONITOR. CALL LIGHT WITHIN REACH.
--- NOTE | 2022-06-28 09:00 | NUR ---
PATIENT LEFT FOR PRE-OP.
--- NOTE | 2022-06-28 12:04 | NUR ---
PT HUGH HE THINKS BATTERY IS IN HEARING AID. IT IS IN HIS RIGHT EAR
--- NOTE | 2022-06-28 12:43 | NUR ---
PATIENT CAME BACK FROM PACU TODAY AT 1235. POD 0 LEFT HIP PINNING WITH LEFT HUMERUS FX PATIENT IS A&OX4. VS ARE WNL AND IS ON RA. PATIENT REPORTS 7/10 PAIN BUT REFUSES PAIN MEDICATIONS AT THIS TIME. HIS LEFT HIP HAS AN AQUACEL DRESSING THAT IS C/D/I. DENIES NUMBESS OR TINGLING IN ALL EXTREMITITES. CAN MOVE ALL FINGERS AND TOES. HIS LEFT ARM IS STILL IN A SLING AND HAD NO SURGERY ON IT. PATIENT IS LAYING IN BED TOLERATING SMALL AMOUNTS OF PO INTAKE. CALL LIGHT WITHIN REACH.
--- NOTE | 2022-06-28 14:59 | NUR ---
SHIFT SUMMARY: POD 0 LEFT HIP PINNING AND LEFT HUMERUS FX PATIENT IS A&O4. VS ARE WNL AND IS ON RA. PAIN HAS BEEN MANAGED WITH PO NORCO SO FAR. HE HAS AN AQUACEL TO THAT LEFT HIP THAT IS C/D/I. HIS LEFT ARM IS IN A SLING. PATIENT DENIES NUMBNESS AND TINGLING IN ALL EXTREMITIES. CAN MOVE ALL FINGERS AND TOES WHEN ASKED. HE IS TOLERATING PO INTAKE. PATIENT WORKED WITH PT EARLIER TODAY. PATIENT IS LAYING IN BED DOING HIS EXERCISES FROM PT WITH CALL LIGHT IN REACH.
--- NOTE | 2022-06-28 15:04 | NUR ---
PATIENT IS BEING TRANSFERRED TO SURGICAL FLOOR. THIS NURSE JUST GAVE REPORT TO JAIME ROD WHO WILL BE ASSUMING CARE.
--- NOTE | 2022-06-28 17:31 | NUR ---
SHIFT SUMMARY PT A&OX4, VSS/RA, OMAR PO, REPOSITIONING SELF IN BED/DECLINED TO GET OOB FOR DINNER, PAIN MANAGED WITH NORCO, AWAITING POSTOP VOID(BLADDERSCAN [phone] AT 1700)-PT REP VOIDING 500 PREOP. S/P L HIP PINNING, AQUACEL CDI, WBAT; L HUMERUS FX IN SLING, WIGGLES FINGERS, CAP REFILL WNL, PULSES STRONG. WILL REPORT TO ONCOMING NOC RN.
[2022-06-29] VITALS (8 sets, daily range): BP systolic 81–135; BP diastolic 64–88
--- NOTE | 2022-06-29 05:20 | NUR ---
SHIFT SUMMARY PT POD 0 L HIP PINNING, PT HAS RESTED MOST OF THE NIGHT. HE HAS VOIDED 300 MLS THIS SHIFT, TOLERATING PO INTAKE. PT BP IS SOFT, MAP ABOVE 65. PT IS ASYMPTOMATIC AND BP HAS TRENDED LOWER THIS ADMISSION OFF AND ON. NO SIGNS OF BLEEDING. DRESSING INTACT TO LEFT HIP C/D/I. PT A/OX4, MAKES NEEDS KNOW. LEFT ARM ARM IN SLING. DENIES N/T IN ALL EXT. BED IN LOWEST POSITION, CALL LIGHT WITHIN REACH.
[2022-06-29 07:10] LABS: BASOPHILS ABSOLUTE AUTO 0.02 K/mm3 (0.00-0.23); BASOPHILS PERCENT AUTO 0 % (0-2); EOSINOPHILS ABSOLUTE AUTO 0.19 K/mm3 (0.00-0.68); EOSINOPHILS PERCENT AUTO 2 % (0-6); Hematocrit 26.7 % (37.0-53.0); Hemoglobin 8.7 g/dL (13.5-17.5); IMMATURE GRAN ABSOLUTE AUTO 0.01 K/mm3 (0.00-0.10); IMMATURE GRAN PERCENT AUTO 0 % (0-1); LYMPHOCYTES ABSOLUTE AUTO 0.55 K/mm3 (0.84-5.20); LYMPHOCYTES PERCENT AUTO 6 % (21-46); MONOCYTES ABSOLUTE AUTO 1.04 K/mm3 (0.16-1.47); MONOCYTES PERCENT AUTO 12 % (4-13); Mean Corpuscular HGB 28.8 pg (26.0-34.0); Mean Corpuscular HGB Conc 32.6 g/dL (31.5-36.5); Mean Corpuscular Volume 88 fL (80-100); Mean Platelet Volume 9.5 fL (9.1-12.4); NEUTROPHILS ABSOLUTE AUTO 7.27 K/mm3 (1.96-9.15); NEUTROPHILS PERCENT AUTO 80 % (41-73); Platelet Count 170 K/mm3 (150-400); RDW Coefficient Variation 13.2 % (11.7-14.2); RDW Standard Deviation 42.5 fL (35.1-46.3); Red Blood Cell Count 3.02 M/mm3 (4.30-5.90); White Blood Cell Count 9.08 K/mm3 (4.00-11.30)
--- NOTE | 2022-06-29 07:20 | NUR ---
recvd bedside report from previous RN Ratna. Pt a/o x 4, pleasant/cooperative, sitting up in bed, call light within reach, rates pain at 8/10 but initially refused analgesia per mar. Provided education r/t pain control, encouraged pt being OOB in chair this shift and educated pt on the wisdom of controlling pain prior to transferring. Pt agrees. bed in lowest position
[2022-06-29 07:31] LABS: Albumin, Blood 2.5 g/dL (3.4-5.0); Albumin/Globulin Ratio 0.9 (0.8-1.8); Bilirubin, Total 0.6 mg/dL (0.1-1.0); Bun/Creatinine Ratio 34.2 (12.0-20.0); Calcium, Blood 8.1 mg/dL (8.5-10.1); Creatinine, Blood 0.67 mg/dL (0.60-1.20); Globulin, Blood 2.8 g/dL (2.2-4.0); Total Protein, Blood 5.3 g/dL (6.4-8.2)
--- NOTE | 2022-06-29 16:05 | NUR ---
SHIFT SUMMARY: PT REMAINED A/O X 4, PLEASANT/COOPERATIVE, HAS TOLERATED PO INTAKE WITH NO N/V, SAT UP AT BEDSIDE DURING PT BUT WAS UNABLE TO COMPLETE TREATMENT HE APPEARED TO BECOME ANXIOUS, RAPID BREATHING. PT DISPLAYS CONCRETE THOUGHT PROCESSES AND APPEARS TO BECOME ANXIOUS WHEN DISCUSSING CHANGED CONDITION OF HEALTH STATUS FOLLOWING FALL AND SURGICAL REPAIR. THIS RN PROVIDED THERAPEUTIC COMMUNICATION REGARDING FEELINGS OF ANXIETY, CHANGING CONDITION, CHANGE TO ROUTINE. PT RELAYED THAT HE DOES HAVE ANXIETY BUT THAT HE IS ABLE TO "BREATHE THROUGH" SITUATIONS. PT AGREED WITH MD RECOMMENDATION OF PRN ANXIOLYTIC. SURGICAL SITE REMAINED C/D/I, L ARM REMAINS IN SLING T/O SHIFT. PT VISITED WITH FRIENDS/FAMILY VIA TELEPHONE THIS SHIFT.
--- NOTE | 2022-06-29 18:12 | NUR ---
pt's spouse called for an update from this rn. update provided, discussion of anxiety and offered anxiolytics. spouse shared that pt has Aspberger's/autism spectrum disorder which has worsened to the point that he is unable to be compliant with any care, refuses foot/fluids, and that it was necessary to move him into a [place] [facility] facility.
[2022-06-30 03:15] VITALS: BP 117/79
[2022-06-30 05:29] LABS: BASOPHILS ABSOLUTE AUTO 0.03 K/mm3 (0.00-0.23); BASOPHILS PERCENT AUTO 0 % (0-2); EOSINOPHILS ABSOLUTE AUTO 0.65 K/mm3 (0.00-0.68); EOSINOPHILS PERCENT AUTO 9 % (0-6); Hematocrit 26.9 % (37.0-53.0); Hemoglobin 8.8 g/dL (13.5-17.5); IMMATURE GRAN ABSOLUTE AUTO 0.03 K/mm3 (0.00-0.10); IMMATURE GRAN PERCENT AUTO 0 % (0-1); LYMPHOCYTES ABSOLUTE AUTO 0.56 K/mm3 (0.84-5.20); LYMPHOCYTES PERCENT AUTO 7 % (21-46); MONOCYTES ABSOLUTE AUTO 1.11 K/mm3 (0.16-1.47); MONOCYTES PERCENT AUTO 15 % (4-13); Mean Corpuscular HGB 29.1 pg (26.0-34.0); Mean Corpuscular HGB Conc 32.7 g/dL (31.5-36.5); Mean Corpuscular Volume 89 fL (80-100); Mean Platelet Volume 9.4 fL (9.1-12.4); NEUTROPHILS ABSOLUTE AUTO 5.28 K/mm3 (1.96-9.15); NEUTROPHILS PERCENT AUTO 69 % (41-73); Platelet Count 190 K/mm3 (150-400); RDW Coefficient Variation 13.1 % (11.7-14.2); RDW Standard Deviation 42.5 fL (35.1-46.3); Red Blood Cell Count 3.02 M/mm3 (4.30-5.90); White Blood Cell Count 7.66 K/mm3 (4.00-11.30)
[2022-06-30 05:51] LABS: Bun/Creatinine Ratio 25.3 (12.0-20.0); Calcium, Blood 8.4 mg/dL (8.5-10.1); Creatinine, Blood 0.67 mg/dL (0.60-1.20); Potassium, Blood 3.9 mmol/L (3.5-5.5)
--- NOTE | 2022-06-30 06:37 | NUR ---
SHIFT SUMMARY PT A&OX4, AND COOPERATIVE WITH CARE. NO ACUTE CHANGES. MEDICATED ONCE FOR PAIN WITH NORCO. USING BEDSIDE URINAL TO VOID, NO BM. TOLERATING PO. AQUACEL TO L HIP C/D/I. L ARM IN SLING. CALLS APPROPRIATELY, CALL LIGHT WITHIN REACH.
[2022-06-30 07:35] VITALS: BP 138/95
[2022-06-30 07:37] VITALS: BP 138/104
--- NOTE | 2022-06-30 17:51 | NUR ---
DISCHARGE PATIENT CLEARED TO DISCHARGE BACK TO [facility] WHERE PATIENT RESIDES. AQUACEL TO L HIP C/D/I. LEFT ARM REMAINS BRUISED AND IN SLING. PAIN MANAGED PER EMAR. EATING, DRINKING, & VOIDING WELL. REPORT CALLED TO RN AT [facility]. PATIENTY TRANSPORTED VIA GURNEY WITH [facility].
== END 2022-06-30 17:53 | disposition home or self-care (01) | DRG 481 ==
LOC: ER 16:25 → SURS 20:47 → PCU 20:47 → SURS 06-28 15:27
PROVIDERS: Family Medicine; Orthopaedic Surgery; Physician Assistant; ADMIT Internal Medicine
PROC: 0QS736Z Reposition Left Upper Femur with Intramedullary Internal Fixation Device, Percutaneous Approach (ICD-10-PCS; principal; 2022-06-28 09:30)
DX: S72.142A Displaced intertrochanteric fracture of left femur, initial encounter for closed fracture (principal); I48.92 Unspecified atrial flutter; S42.292A Other displaced fracture of upper end of left humerus, initial encounter for closed fracture; I50.22 Chronic systolic (congestive) heart failure; J43.9 Emphysema, unspecified; I48.91 Unspecified atrial fibrillation; I25.10 Atherosclerotic heart disease of native coronary artery without angina pectoris; F43.10 Post-traumatic stress disorder, unspecified; M85.80 Other specified disorders of bone density and structure, unspecified site; L57.0 Actinic keratosis; K21.9 Gastro-esophageal reflux disease without esophagitis; E03.9 Hypothyroidism, unspecified; B19.20 Unspecified viral hepatitis C without hepatic coma; I95.9 Hypotension, unspecified; W18.2XXA Fall in (into) shower or empty bathtub, initial encounter; E78.5 Hyperlipidemia, unspecified; Z88.5 Allergy status to narcotic agent; Z88.8 Allergy status to other drugs, medicaments and biological substances; Z79.51 Long term (current) use of inhaled steroids; I25.2 Old myocardial infarction; Z79.82 Long term (current) use of aspirin; Z90.49 Acquired absence of other specified parts of digestive tract; Z79.02 Long term (current) use of antithrombotics/antiplatelets; Z95.5 Presence of coronary angioplasty implant and graft; Z87.891 Personal history of nicotine dependence; Z79.811 Long term (current) use of aromatase inhibitors; Z79.899 Other long term (current) drug therapy; Z79.2 Long term (current) use of antibiotics; Z79.52 Long term (current) use of systemic steroids; Z98.890 Other specified postprocedural states
CPT/HCPCS: 36415; 72192; 73060; 73200; 73502; 80048; 80053; 85025; 85610; 93005; 93010; 94640; 94664; 94760; 96374; 97110; 97162; 97530; 99285-25; A9270; C1713; C1769; C9113; J0690; J1100; J2250; J2370; J2405; J2704; J3010; J7030; J7120

== ENCOUNTER 2024-10-20 12:16 | Day surgery (SDC) | payer OTHER ==
[~2024-10-20] VITALS: Ht 177.8 cm; Wt 52.0 kg
[~2024-10-20 12:16] MED LIST changes: +Balanced Salt Epinephrine Irrigation Solution 500 mL IR SCH; +METO50ER PO; +Moxifloxacin HCL 0.5 MG/0.1 ML 0.4MLSYR LEFTEYE SCH; +NS 500 ML IV ONE; +PHENYLEPHRINE\\TROPICAMIDE\\TETRACAINE OPHTHALMIC DILATING SOLN LEFTEYE PRN; +Povidone-Iodine 450 DROP/30 ML Solution LEFTEYE SCH; +Povidone-Iodine 450 DROP/30 ML Solution ONE; +Tetracaine HCl/Pf 0.5% Opth Soln 4 ml ONE; +Triamcinolone Inj Susp 40 MG / ML 1ML Vial INJ SCH; +Triamcinolone Inj Susp 40 MG / ML 1ML Vial ONE
[2024-10-20] MEDS ORDERED: NS 500 ML IV ONE (12:45)
[2024-10-20] MEDS ORDERED: Midazolam HCl 1MG / ML 2ML Vial ONE ×2 (12:52→13:21)
[2024-10-20] MEDS ORDERED: FentaNYL Citrate 50 MCG/ML 2 ML Injection ONE (12:52)
[2024-10-20] MEDS ORDERED: FAMO20 PO (13:14)
[2024-10-20] MEDS ORDERED: FINA5 PO (13:15)
[2024-10-20] MEDS ORDERED: TAMS.4ER PO (13:15)
[2024-10-20] MEDS ORDERED: FLUT1DIS5 (13:17)
--- NOTE | 2024-10-20 13:47 | NUR ---
10/20/24 8527 SAMINA MORENO DENIES NAUSEA. PAIN "NOT REALLY" NOT HOT OR COLD
[2024-10-20 14:24] VITALS: BP 126/85
== END 2024-10-20 14:35 | disposition home or self-care (01) ==
LOC: ORSCSDS 12:16
PROVIDERS: Ophthalmology
PROC: 08RK3JZ Replacement of Left Lens with Synthetic Substitute, Percutaneous Approach (ICD-10-PCS; principal; 2024-10-20 13:30)
DX: H25.812 Combined forms of age-related cataract, left eye (principal); Z96.1 Presence of intraocular lens; I10 Essential (primary) hypertension; E78.5 Hyperlipidemia, unspecified; G47.33 Obstructive sleep apnea (adult) (pediatric); J44.9 Chronic obstructive pulmonary disease, unspecified; I25.2 Old myocardial infarction; F43.10 Post-traumatic stress disorder, unspecified; Z86.73 Personal history of transient ischemic attack (TIA), and cerebral infarction without residual deficits; I25.10 Atherosclerotic heart disease of native coronary artery without angina pectoris; K21.9 Gastro-esophageal reflux disease without esophagitis; E07.9 Disorder of thyroid, unspecified; Z79.82 Long term (current) use of aspirin; Z79.899 Other long term (current) drug therapy
CPT/HCPCS: J2250; J3010; J3301; J7040; V2632

== ENCOUNTER 2024-11-15 11:25 | Inpatient (IN) | payer OTHER ==
[~2024-11-15] VITALS: Ht 177.8 cm; Wt 54.1 kg
[~2024-11-15 11:25] MED LIST changes: -Balanced Salt Epinephrine Irrigation Solution 500 mL IR SCH; +FAMO20 PO; +FINA5 PO; +FLUT1DIS5; -Moxifloxacin HCL 0.5 MG/0.1 ML 0.4MLSYR LEFTEYE SCH; -NS 500 ML IV ONE; -PHENYLEPHRINE\\TROPICAMIDE\\TETRACAINE OPHTHALMIC DILATING SOLN LEFTEYE PRN; -Povidone-Iodine 450 DROP/30 ML Solution LEFTEYE SCH; -Povidone-Iodine 450 DROP/30 ML Solution ONE; +TAMS.4ER PO; -Tetracaine HCl/Pf 0.5% Opth Soln 4 ml ONE; -Triamcinolone Inj Susp 40 MG / ML 1ML Vial INJ SCH; -Triamcinolone Inj Susp 40 MG / ML 1ML Vial ONE
[2024-11-15 12:21] LABS: BASOPHILS ABSOLUTE AUTO 0.03 K/mm3 (0.00-0.23); BASOPHILS PERCENT AUTO 0 % (0-2); EOSINOPHILS ABSOLUTE AUTO 0.23 K/mm3 (0.00-0.68); EOSINOPHILS PERCENT AUTO 3 % (0-6); Hematocrit 40.2 % (37.0-53.0); Hemoglobin 13.4 g/dL (13.5-17.5); IMMATURE GRAN ABSOLUTE AUTO 0.04 K/mm3 (0.00-0.10); IMMATURE GRAN PERCENT AUTO 0 % (0-1); LYMPHOCYTES ABSOLUTE AUTO 0.65 K/mm3 (0.84-5.20); LYMPHOCYTES PERCENT AUTO 7 % (21-46); MONOCYTES ABSOLUTE AUTO 1.20 K/mm3 (0.16-1.47); MONOCYTES PERCENT AUTO 13 % (4-13); Mean Corpuscular HGB Conc 33.3 g/dL (31.5-36.5); Mean Corpuscular Volume 86 fL (80-100); NEUTROPHILS ABSOLUTE AUTO 6.97 K/mm3 (1.96-9.15); NEUTROPHILS PERCENT AUTO 77 % (41-73); NRBC ABSOLUTE 0.00 K/mm3 (0.00-0.02); NRBC Auto 0.0 /100 WBC (0.0-0.2); Platelet Count 208 K/mm3 (150-400); RDW Coefficient Variation 15.0 % (11.7-14.2); RDW Standard Deviation 46.5 fL (35.1-46.3)
[2024-11-15 12:46] LABS: Alanine Aminotransfer (ALT/SGP 22.0 U/L (12-78); Albumin, Blood 3.1 g/dL (3.4-5.0); Albumin/Globulin Ratio 0.9 (0.8-1.8); Anion Gap 8.0 mmol/L (3-11); Aspartate Aminotrans (AST/SGOT 18.0 U/L (12-37); Bilirubin, Total 0.9 mg/dL (0.1-1.0); Blood Urea Nitrogen 20.0 mg/dL (8-24); CO2, Blood 27.0 mmol/L (21-32); Calcium, Blood 8.7 mg/dL (8.5-10.1); Chloride, Blood 105.0 mmol/L (98-108); Creatinine, Blood 0.55 mg/dL (0.60-1.20); Globulin, Blood 3.5 g/dL (2.2-4.0); Glucose, Blood 111.0 mg/dL (70-99); Potassium, Blood 4.1 mmol/L (3.5-5.5); Sodium, Blood 136.0 mmol/L (136-145); Total Protein, Blood 6.6 g/dL (6.4-8.2)
[2024-11-15] MEDS ORDERED: FLU VACC TS2025(65UP)/MF59C/PF 45 MCG/0.5 ML SYRINGE IM SCH (13:45)
[2024-11-15] MEDS ORDERED: Morphine Sulfate 4 MG/1 ML Injection IV PRN (14:25)
[2024-11-15] MEDS ORDERED: Polyethylene Glycol 3350 17 gm PO PRN (14:25)
[2024-11-15] MEDS ORDERED: Ondansetron HCl 2 MG / ML 2ML Vial IV PRN (14:25)
[2024-11-15 16:02] VITALS: BP 126/95
[2024-11-15] MEDS ORDERED: Ventolin5 MG/1 ML INH (16:07)
--- NOTE | 2024-11-15 17:13 | NUR ---
ASSUMED CARE OF PT @1600 VSS. AXO4. R LEG BEING MOVED BY PT - JUST PAINFUL. ON RA. SKIN TEARS NOTED TO HAND AND LEG. WIGGLING TOES WELL. SENSATION INTACT TO BLE'S. ADMISSION PACKET COMPLETED. TOLERATING PO INTAKE CURRENTLY. AWARE OF SURGERY TOMORROW - WILL BE NPO @0000. PT USING CALL LIGHT APPROPRIATELY / COOPERATIVE WITH CARE. OTHERWISE RESTING IN BED. DENYING NEED FOR PAIN MEDS CURRENTLY.
[2024-11-15] MEDS ORDERED: HYDROcodone 5-APAP 325 TAB PO PRN ×2 (19:25→20:30)
[2024-11-15 20:18] VITALS: BP 116/72
[2024-11-16] VITALS (20 sets, daily range): BP systolic 91–131; BP diastolic 65–92
--- NOTE | 2024-11-16 05:48 | NUR ---
SHIFT SUMMARY PT ADMITTED FOR R FEMORAL HEAD FX. PT A&O X4. PAIN MANAGED PER EMAR WELL. PT NPO SINCE 0000. PLAN FOR SURGERY TODAY. PT RESTED THROUGHOUT THE NIGHT. CALL LIGHT WITHIN REACH.
[2024-11-16] MEDS ORDERED: CeFAZolin Sodium 2,000 MG in NS 100 ML IV SCH ×2 (08:20→20:00)
[2024-11-16] MEDS ORDERED: Tranexamic Acid 100 ML IV SCH ×3 (08:25→16:50)
--- NOTE | 2024-11-16 11:17 | NUR ---
"Spiritual Care Visit | Pt. request Pt. is awake in bed and welcomes my visit. pt. is pleasant but does display some discomfort. Facilitated a lengthy life review and listened with empathy, interest and engagement. Pt. gave little indication regarding jimbo, but displayed evidence of developing trust with this wellness health coach. A trauma called this wellness health coach away, but Pt. verbalized gratitude fo rthe spiritual care visit before I left and welcomed this wellness health coach to return. Will remain available to the Pt."
--- NOTE | 2024-11-16 11:20 | NUR ---
PT TO DAY SURGERY
[2024-11-16] MEDS ORDERED: FentaNYL Citrate 50 MCG/ML 2 ML Injection ONE ×2 (12:00→13:49)
[2024-11-16] MEDS ORDERED: Rocuronium Bromide 10 MG/ML 5ML Injection IV ONE (12:00)
--- NOTE | 2024-11-16 12:06 | NUR ---
PRE OP NOTE PT TO DSU IN BED, A&OX4, BREATING RA, VSS. PT HAS NO COMPLAINTS. Patient confirms NPO status and agrees with scheduled surgery. Pre-Op teaching done. Pt verbalizes understanding. NECKLACE AND RINGS LEFT IN PT ROOM IN CLOSET C UNDERWEAR. DENTURES AND HEARING AIDS SENT TO PACU.
[2024-11-16] MEDS ORDERED: Bupivacaine 0.5% W/EPI 1:200000 SDV 30 ML Vial ONE (12:12)
[2024-11-16] MEDS ORDERED: Phenylephrine HCl 100 MCG/ML-NS 10MLSYR (1MG/10ML) ONE (12:25)
[2024-11-16] MEDS ORDERED: ePHEDrine Sulfate 50 MG/ML 1ML Injection ONE (12:34)
[2024-11-16] MEDS ORDERED: Sugammadex Sodium 200 MG/2ML SDV (100 MG/ML) ONE (13:16)
--- NOTE | 2024-11-16 14:44 | NUR ---
ARRIVAL TO SURGICAL FLOOR TO SURG FLOOR VIA HOSP BED. A&O x4, VSS, HRR. R HIP w/2 AQUACEL DRESSINGS, C/D/I. ON ROOM AIR w/SATS >93%. REPORTING "PHLEGM", ENOCOURAGING COUGH & DEEP BREATHING. SNACKS & DRINKS GIVEN. CALL LIGHT WITHIN REACH.
--- NOTE | 2024-11-16 17:49 | NUR ---
SHIFT SUMMARY ADMITTED ON 11/15 FOR HIP FRACTURE FOLLOWING FALL AT PREVIOUS FACILITY. A&O x4, VSS, HRR, LUNGS CLEAR. R HIP w/2 AQUACELS, C/D/I. STATED SEVERE PAIN, MEDICATED & MANAGED PER EMAR. TOLERATING FOOD & FLUIDS WELL. UNABLE TO VOID, BLADDER SCAN SHOWING 145. CURRENTLY RESTING IN BED. CALL LIGHT WITHIN REACH.
[2024-11-17 03:55] VITALS: BP 124/76
--- NOTE | 2024-11-17 05:02 | NUR ---
SHIFT SUMMARY POD 1 R HIP PINNING. AQUACEL DRESSING X2 C/D/I. VSS. PAIN MANAGED WELL PER EMAR. PT VOIDING USING URINAL. PT RESTED THROUGHOUT THE NIGHT. CALL LIGHT WITHIN REACH.
[2024-11-17 06:05] LABS: BASOPHILS ABSOLUTE AUTO 0.05 K/mm3 (0.00-0.23); BASOPHILS PERCENT AUTO 1 % (0-2); EOSINOPHILS ABSOLUTE AUTO 0.53 K/mm3 (0.00-0.68); EOSINOPHILS PERCENT AUTO 6 % (0-6); Hematocrit 38.4 % (37.0-53.0); Hemoglobin 12.5 g/dL (13.5-17.5); IMMATURE GRAN ABSOLUTE AUTO 0.04 K/mm3 (0.00-0.10); IMMATURE GRAN PERCENT AUTO 0 % (0-1); LYMPHOCYTES ABSOLUTE AUTO 0.72 K/mm3 (0.84-5.20); LYMPHOCYTES PERCENT AUTO 8 % (21-46); MONOCYTES ABSOLUTE AUTO 1.47 K/mm3 (0.16-1.47); MONOCYTES PERCENT AUTO 16 % (4-13); Mean Corpuscular HGB Conc 32.6 g/dL (31.5-36.5); Mean Corpuscular Volume 88 fL (80-100); NEUTROPHILS ABSOLUTE AUTO 6.57 K/mm3 (1.96-9.15); NEUTROPHILS PERCENT AUTO 70 % (41-73); NRBC ABSOLUTE 0.00 K/mm3 (0.00-0.02); NRBC Auto 0.0 /100 WBC (0.0-0.2); Platelet Count 194 K/mm3 (150-400); RDW Coefficient Variation 14.9 % (11.7-14.2); RDW Standard Deviation 48.0 fL (35.1-46.3)
[2024-11-17 06:38] LABS: Anion Gap 10.0 mmol/L (3-11); Blood Urea Nitrogen 18.0 mg/dL (8-24); CO2, Blood 24.0 mmol/L (21-32); Calcium, Blood 8.5 mg/dL (8.5-10.1); Chloride, Blood 103.0 mmol/L (98-108); Creatinine, Blood 0.58 mg/dL (0.60-1.20); Glucose, Blood 78.0 mg/dL (70-99); Potassium, Blood 3.9 mmol/L (3.5-5.5); Sodium, Blood 133.0 mmol/L (136-145)
[2024-11-17 07:17] VITALS: BP 111/62
--- NOTE | 2024-11-17 14:13 | NUR ---
PT REFUSED TO GET UP TO CHAIR
[2024-11-17] MEDS ORDERED: Albuterol 2.5 MG/3 ML VIAL INH PRN (14:55)
[2024-11-17 15:35] VITALS: BP 106/72
[2024-11-17 17:54] LABS: SARS-Cov-2 (COVID-19) PCR, MMC NEGATIVE (NEGATIVE)
--- NOTE | 2024-11-17 18:32 | NUR ---
SHIFT SUMMARY POD1 R HIP NAILING PT IS A/OX4. ABLE TO MAKE NEEDS KNOWN. VSS. PT DENIES N/V. PAIN MANAGED PER EMAR. PT WORKED WITH PHYSICAL AND OCCUPATIONAL THERAPY TODAY. PL[facility] DC [facility]. PT IS 1X W/ GAIT BELT. PT REFUSED TO USE WALKER, PT REFUSED TO SIT IN CHAIR TODAY, PT ALSO REFUSED TO WEAR HOSPITAL GOWN AND SOCKS WHEN AMBULATING. SURGICAL DRESSING C/D/I.
[2024-11-17 19:18] VITALS: BP 122/83
[2024-11-18 03:46] VITALS: BP 136/91
--- NOTE | 2024-11-18 04:38 | NUR ---
SHIFT SUMMARY XANDER WAS ALERT AND FULLY ORIENTED ON ASSESSMENT. PAIN WELL MANAGED. DRESSINGS C/D/I. PT DENIES ABNORMAL SOB, CHEST PAIN, OR NAUSEA. CIRCULATION AND SENSATION TO DISTAL EXTS INTACT. NO ACUTE EVENTS THIS SHIFT, NO NOTED CHANGES TO PT CONDITON.
[2024-11-18 07:41] VITALS: BP 115/86
--- NOTE | 2024-11-18 12:55 | NUR ---
[facility] AND SPOKE WITH [facility]. PATIENT BELONGINGS AND PACKET WITH MEDIA DIRECTOR. PATIENT IS WHEELED OUT TO AWAITING [facility].
== END 2024-11-18 12:41 | DRG 480 ==
LOC: ER 11:25 → SURS 13:32
PROVIDERS: Emergency Medicine; Orthopaedic Surgery Sports Medicine; ADMIT Family Medicine
PROC: 0QS636Z Reposition Right Upper Femur with Intramedullary Internal Fixation Device, Percutaneous Approach (ICD-10-PCS; principal; 2024-11-16 11:45)
DX: S72.141A Displaced intertrochanteric fracture of right femur, initial encounter for closed fracture (principal); E43 Unspecified severe protein-calorie malnutrition; I48.92 Unspecified atrial flutter; Z68.1 Body mass index [BMI] 19.9 or less, adult; I50.32 Chronic diastolic (congestive) heart failure; I25.10 Atherosclerotic heart disease of native coronary artery without angina pectoris; I48.91 Unspecified atrial fibrillation; K21.9 Gastro-esophageal reflux disease without esophagitis; E03.9 Hypothyroidism, unspecified; J43.9 Emphysema, unspecified; I27.20 Pulmonary hypertension, unspecified; W01.0XXA Fall on same level from slipping, tripping and stumbling without subsequent striking against object, initial encounter; Y92.129 Unspecified place in nursing home as the place of occurrence of the external cause; Z88.8 Allergy status to other drugs, medicaments and biological substances; Z79.890 Hormone replacement therapy; I25.2 Old myocardial infarction; Z79.82 Long term (current) use of aspirin; Z79.51 Long term (current) use of inhaled steroids; Z86.19 Personal history of other infectious and parasitic diseases; Z98.61 Coronary angioplasty status
CPT/HCPCS: 36415; 73502; 73552; 80048; 80053; 85025; 93005; 93010; 93306; 94640; 94664; 94760; 97110; 97161; 97165; 97530; 99285-25; A9270; C1713; C1769; J0690; J2270; J2371; J2704; J3010; J7120; U0002